=== PATIENT | female | born 1985 | race Caucasian/White ===

== ENCOUNTER 2017-11-07 06:12 | Day surgery (SDC) | payer BC ==
[2017-11-07 07:00] LABS: Specific Gravity >= 1.030 (1.005-1.030)
[2017-11-07] MEDS ORDERED: Ringers Lactate 1,000 ML IV ONE (07:02)
[2017-11-07] MEDS ORDERED: MIDAZOLAM HCL 2 MG/2 ML INJ ONE (07:18)
[2017-11-07] MEDS ORDERED: PROPOFOL 200 MG/20 ML VIAL IV ONE (07:18)
[2017-11-07] MEDS ORDERED: FENTANYL CITR 100 MCG/2 ML ONE (07:19)
[2017-11-07] MEDS ORDERED: BSS OPTHALMIC SOL 15 ML BOT OPTH ONE (07:34)
[2017-11-07] MEDS ORDERED: POVIDONE-IODINE 5% EYE DROPS ONE (07:34)
[2017-11-07] MEDS ORDERED: TOBRADEX 0.3-0.1% OPTH OINTMENT ONE (07:34)
[2017-11-07] MEDS ORDERED: CYCLOPENTOLATE 2% OPTH 2 ML ONE (07:44)
[2017-11-07] MEDS ORDERED: TROPICAMIDE 1% OPTH 3 ML BOT ONE (07:44)
[2017-11-07] MEDS ORDERED: PHENYLEPHRINE 2.5% OPTH 2 ML ONE (07:44)
[2017-11-07] MEDS ORDERED: MOXIFLOXACIN HCL 0.5% 3ML OPTH OPTH ONE ×2 (07:45→07:55)
[2017-11-07] MEDS ORDERED: CYCLOPENTOLATE 2% OPTH 2 ML OPTH ONE (07:55)
[2017-11-07] MEDS ORDERED: PHENYLEPHRINE 2.5% OPTH 2 ML OPTH ONE (07:55)
[2017-11-07] MEDS ORDERED: TROPICAMIDE 1% OPTH 3 ML BOT OPTH ONE (07:55)
[2017-11-07] MEDS ORDERED: LIDOCAINE 1% MPF 5 ML VIAL ONE (08:08)
[2017-11-07] MEDS ORDERED: GLYCOPYRROLATE 0.2 MG/ML SYR ONE (09:14)
[2017-11-07 09:29] VITALS: O2SAT 100
[2017-11-07] MEDS ORDERED: MORPHINE 4 MG/ML SYR ONE (09:32)
[2017-11-07] MEDS: MEPERIDINE HCL 50 MG/ML AMP ONE ×2 (09:44→09:52)
[2017-11-07] MEDS ORDERED: ACETAMINOPHEN 325 MG TABLET ONE (10:26)
[2017-11-07 10:38] VITALS: TEMP 98.2
[2017-11-07 12:00] VITALS: BP 110/65
--- NOTE | 2017-11-07 20:46 | OP ---
Date of Procedure: 11/07/2017 Surgeon: Solis Palacios MD Workforce Manager: Dr. Migel Palacios. Preoperative Diagnoses: Alternating esotropia, mild amblyopia. Procedures Performed: Recession, right medial rectus, 5.5 mm. Resection right lateral rectus 5.5 mm . Description Of Procedure: After being properly identified in preoperative holding area, the patient was taken back to the operating room where a time-out was performed. The patient was then prepped an d draped in normal sterile fashion. Using a pair of 0.3 forceps, both the right globe and left globe were tested in order to ensure no restriction and good motility. As this was present on both, the p reoperative plan of operating on the right eye was carried out, grasping the conjunctiva with a pair of forceps and Brianne scissors was made to incise the conjunctiva over the medial rectus, and the c onjunctiva was dissected until the medial rectus could be identified and hooked and then cross-hooked . The muscle was thereafter cleaned and then using a 6-0 Vicryl on S14 speculated needle, cut in chuck f. First the superior portion of the medial rectus, then the inferior portion of the medial rectus w as sutured and tied into place using a serrefine. Serrefine was then drawn taut and the Brianne sci ssors used to disinsert the medial rectus. A caliper was used to measure 5.5 mm back from the residu al muscle stump and holding the caliper with a perpendicular orientation, so that the final muscle re section would be parallel to the initial muscle insertion, the sclera was marked, and then the suture placed into the sclera, first on the inferior and then on the superior portion, then tied into posit ion. Visualization confirmed a parallel placement as well as measurement of the desired amount. Our attention was then turned to the lateral rectus, and again the conjunctiva was incised with the West efra scissors and the lateral rectus dissected free. The muscle was hooked and then cross-hooked in order to release any possible entrapment of the inferior oblique muscle, and once this was performed, the lateral rectus fully isolated and dissected. Once this had been performed to our satisfaction, a Emerald clamp was placed over the lateral rectus and tightened into position and then the muscle dis inserted from its original insertion. A pair of double-armed 6-0 Vicryl again on S14 needle were naheed anupam through the original muscle insertion, the muscle stump backed to forward manner and then using t he same caliper set to 5.5 mm confirmed with a ruler, each of the suture arms was placed through the through the muscle belly, 5.5 mm back from the clamp. This was then tied down into position and once tied down with the knots cut, the excess muscle stump was removed. The conjunctiva was then draped closed, and the globe tested in order to make sure no significant restriction existed, and once this was confirmed, the procedure concluded. TobraDex ointment was placed over the eye, and the drapes re moved with the patient pressure patched. She is to follow up with myself, Dr. Solis Palacios, at the [facility] tomorrow morning. She was taken to the postop holding area in stable condi tion having tolerated procedure well. There were no complications. Estimated Blood Loss: Less than 1 mL. Specimen: No specimen sent. Drains: No drains placed. As discussed with both the patient and her preoperatively, that this procedure would not full y correct the patient's turn as a full correction would result in diplopia and even a more partial co rrection would end in diplopia. The goal of this operation is to make the patient more straight with a better cosmetic appearance as well as being able to tolerate her glasses, but that the eyes will n ot be perfectly straight. KOBE/JULIO CESAR Voice ID: [id number] Report ID: [id number]
== END 2017-11-07 11:53 | disposition home or self-care (01) ==
LOC: OR 06:12
PROVIDERS: ATTEND Ophthalmology
PROC: 08SL0ZZ Reposition Right Extraocular Muscle, Open Approach (ICD-10-PCS; principal; 2017-11-07 07:30)
DX: H50.05 Alternating esotropia (principal); Z88.6 Allergy status to analgesic agent; Z88.0 Allergy status to penicillin; H53.001 Unspecified amblyopia, right eye
CPT/HCPCS: 81025; J2175; J2250; J3010

== ENCOUNTER 2018-03-10 11:10 | Emergency (ER) | payer BC ==
--- OUTSIDE RECORDS SUMMARY | 2018-03-10 11:12 | XMS REPORT ---
:1985 [facility] Address [address] [place] [address] Dr. Bates[address] [place] [id number] Care Team Providers Name Role Phone Unavailable Unavailable Unavailable Problems This patient has no known problems. Allergies, Adverse Reactions, Alerts This patient has no known allergies or adverse reactions. Medications This patient has no known medications.
[2018-03-10] MEDS ORDERED: HYDROCODONE/APAP 7.5/325 MG TAB ONE (12:50)
[2018-03-10 13:10] LABS: Absolute Lymphocytes (CBC) 0.6 K/uL (0.7-4.9); Absolute Monocytes 0.2 K/uL (0.1-1.3); Absolute Neutrophil 2.5 K/uL (1.8-8.0); Basophils % 0.3 % (0-1.3); Eosinophils % 2.9 % (0-4.4); Hematocrit 36.4 % (36.0-45.0); Lymphocytes % 17.5 % (15.3-44.8); MPV 9.1 fL (7.6-11.3); Monocytes % 6.8 % (3.3-12.3); RBC Red Blood Cell Count 3.97 M/uL (3.86-4.86)
[2018-03-10 13:25] LABS: ALT/SGPT 14 U/L (12-78); AST/SGOT 5 U/L (15-37); Albumin 3.6 g/dL (3.4-5.0); Alkaline Phosphatase 64 U/L (45-117); BUN Blood Urea Nitrogen 8 mg/dL (7-18); Bicarbonate 28 mmol/L (21-32); Bilirubin Direct 0.2 mg/dL (0-0.2); Bilirubin Total 0.5 mg/dL (0.2-1.0); Glucose Level 100 mg/dL (74-106); Lipase 78 U/L (73-393); Potassium 3.8 mmol/L (3.5-5.1); Protein, Total 6.8 g/dL (6.4-8.2); Sodium Level 139 mmol/L (136-145)
--- NOTE | 2018-03-10 13:57 | RAD REPORT ---
EXAM DESCRIPTION: US - Pelvis Complete - 03/10/2018 1:46 pm CLINICAL HISTORY: Pelvic pain, history of IUD placement Preliminary findings provided at the time of the study. COMPARISON: Ultrasound January 2015 TECHNIQUE: Transabdominal pelvic sonography was performed. FINDINGS: IUD is identified and appears properly positioned within the fundus portion of the endomet rial cavity. No discrete endometrial or myometrial mass. No blood or fluid in the cul de sac. Both ovaries are identifiable. Doppler evaluation shows normal o varian blood flow pattern. No dominant solid or cystic ovarian or adnexal finding. IMPRESSION: Unremarkable transabdominal pelvic ultrasound. IUD is well positioned.
--- NOTE | 2018-03-10 14:12 | EDPHYS ---
Physician Documentation [facility] Name: Norma Cantu Age: 33 yrs Sex: Female : 1985 Arrival Date: 03/10/2018 Time: 11:14 Bed 24 Private MD: Arie Maravilla ED Physician Harvey Crook HPI: 03/10 12:32 This 33 yrs old Female presents to ER via Ambulatory with complaints of ma2 Vaginal Pain. 12:32 The patient presents with suprapubic cramping and vaginal discharge . Onset: The ma2 symptoms/episode began/occurred gradually, 2 day(s) ago. Associated signs and symptoms: Pertinent positives: vaginal discharge, Pertinent negatives: dysuria, fever, urinary frequency, vaginal bleeding. Severity of symptoms: At their worst the symptoms were moderate, in the emergency department the symptoms are unchanged. The patient has not experienced similar symptoms in the past. Historical: - Allergies: 11:37 Aspirin; sv 11:37 NSAIDS; sv 11:37 PENICILLINS; sv - PSHx: 11:37 tubal reversal; sv - Immunization history:: Flu vaccine is up to date. - Social history:: Smoking status: Patient/guardian denies using tobacco, Patient/guardian denies using alcohol, street drugs, The patient lives. - Ebola Screening: : No symptoms or risks identified at this time. - Family history:: not pertinent. - Hospitalizations: : No recent hospitalization is reported. ROS: 12:32 Positive for pelvic pain, Negative for urinary symptoms, difficulty urinating, ma2 bladder incontinence, vaginal itching, menstrual abnormality. 12:32 Constitutional: Negative for fever, chills, and weight loss, Neck: Negative for injury, pain, and swelling, Cardiovascular: Negative for chest pain, palpitations, and edema, Respiratory: Negative for shortness of breath, cough, wheezing, and pleuritic chest pain, Abdomen/GI: Negative for abdominal pain, nausea, diarrhea, and constipation. 12:32 All other systems are negative. Exam: 12:32 Constitutional: This is a well developed, well nourished patient who is awake, alert, ma2 and in no acute distress. Chest/axilla: Normal chest wall appearance and motion. Nontender with no deformity. No lesions are appreciated. Cardiovascular: Regular rate and rhythm with a normal S1 and S2. No gallops, murmurs, or rubs. Normal PMI, no JVD. No pulse deficits. Respiratory: Lungs have equal breath sounds bilaterally, clear to auscultation and percussion. No rales, rhonchi or wheezes noted. No increased work of breathing, no retractions or nasal flaring. Abdomen/GI: Soft, non-tender, with normal bowel sounds. No distension or tympany. No guarding or rebound. No evidence of tenderness throughout. MS/ Extremity: Pulses equal, no cyanosis. Neurovascular intact. Full, normal range of motion. Neuro: Awake and alert, GCS 15, oriented to person, place, time, and situation. Cranial nerves II-XII grossly intact. Motor strength 5/5 in all extremities. Sensory grossly intact. Cerebellar exam normal. Normal gait. Vital Signs: 11:37 BP 102 / 77; Pulse 83; Resp 16; Temp 97.7; Pulse Ox 98% ; Weight 66.22 kg; Height 5 ft. sv 4 in. (162.56 cm); Pain 7/10; 14:00 BP 110 / 80; Pulse 80; Resp 17; Pulse Ox 99% on R/A; kr2 11:37 Body Mass Index 25.06 (66.22 kg, 162.56 cm) sv MDM: 11:59 Patient medically screened. ma2 12:32 Differential diagnosis: ectopic , menometrorrhagia, nonspecific abdominal ma2 pain, urinary tract infection. 14:09 Data reviewed: vital signs, nurses notes. Counseling: I had a detailed discussion with ma2 the patient and/or guardian regarding: the historical points, exam findings, and any diagnostic results supporting the discharge/admit diagnosis, the presence of at least one elevated blood pressure reading (>120/80) during this emergency department visit, the need for outpatient follow up. ED course: she will f/u with soft boarder for IUD removal . 03/10 13:01 Order name: Basic Metabolic Panel; Complete Time: 14:00 EDMS 03/10 13:01 Order name: Liver (Hepatic) Function; Complete Time: 14:00 EDMS 03/10 13:01 Order name: Lipase; Complete Time: 14:00 EDMS 03/10 13:02 Order name: Creatinine (Radiology Only); Complete Time: 14:00 EDMS 03/10 13:02 Order name: Test Serum, Qual[place]; Complete Time: 14:00 EDUT 03/10 13:02 Order name: CBC with Automated Diff; Complete Time: 14:00 EDUT 03/10 12:25 Order name: IV Saline Lock; Complete Time: 13:03 [facility] 03/10 12:25 Order name: Labs collected and sent; Complete Time: 13:03 [facility] 03/10 12:25 Order name: Urine Dipstick-Ancillary (obtain specimen) [facility] 03/10 12:39 Order name: Pelvis Complete; Complete Time: 14:00 EDMS 03/10 15:02 Order name: Urinalysis EDMS Administered Medications: 12:40 Drug: [place] (7.5 mg-325 mg) 1 tabs Route: PO; dm5 13:35 Follow up: Response: No adverse reaction; Pain is decreased dm5 14:24 Not Given (order change): Rocephin (cefTRIAXone) 125 mg IM once kr2 14:30 Drug: AZITHromycin 1 grams Route: PO; kr2 15:01 Follow up: Response: No adverse reaction kr2 14:44 Drug: Rocephin (cefTRIAXone) 250 mg Route: IM; Site: right gluteus; kr2 15:02 Follow up: Response: No adverse reaction kr2 Disposition: 03/10/18 14:12 Discharged to Home. Impression: Abdominal and pelvic pain. - Condition is Stable. - Discharge Instructions: Pelvic Pain, Female, Intrauterine Device Insertion, Care After. - Prescriptions for Tylenol- Codeine #3 300-30 mg Oral Tablet - take 2 tablet by ORAL route every 6 hours As needed; 30 tablet. - Medication Reconciliation Form, Thank You Letter, Antibiotic Education, Prescription Opioid Use form. - Follow up: Private Physician; When: Tomorrow; Reason: Continuance of care. Signatures: [facility] Oneida Serrato RN RN dm5 Zoe Dumont RN RN sv Reaves, Karey, RN RN kr2 Harvey Crook MD MD ma2 Corrections: (The following items were deleted from the chart) 15:06 14:12 03/10/2018 14:12 Discharged to Home. Impression: Abdominal and pelvic pain. kr2 Condition is Stable. Forms are Medication Reconciliation Form, Thank You Letter, Antibiotic Education, Prescription Opioid Use. Follow up: Private Physician; When: Tomorrow; Reason: Continuance of care. ma2
--- NOTE | 2018-03-10 14:12 | ER ---
Nurse's Notes [facility] Name: Norma Cantu Age: 33 yrs Sex: Female : 1985 Arrival Date: 03/10/2018 Time: 11:14 Bed 24 Private MD: Arie Maravilla Diagnosis: Abdominal and pelvic pain Presentation: 03/10 11:35 Presenting complaint: Patient states: suprapubic pain, vaginal "bridget" pain, nausea x 2 sv days. Reports unable to find the string to her IUD as well. Transition of care: patient was not received from another setting of care. Onset of symptoms was March 08, 2018. Care prior to arrival: None. 11:35 Method Of Arrival: Ambulatory sv 11:35 Acuity: ARISTIDES 3 sv 13:00 Risk Assessment: Do you want to hurt yourself or someone else? Patient reports no kr2 desire to harm self or others. 13:00 Initial Sepsis Screen: Does the patient meet any 2 criteria? No. Patient's initial kr2 sepsis screen is negative. Does the patient have a suspected source of infection? No. Patient's initial sepsis screen is negative. Triage Assessment: 11:38 General: Appears in no apparent distress. uncomfortable, Behavior is calm, cooperative, sv appropriate for age. Pain: Complains of pain in suprapubic area Pain currently is 7 out of 10 on a pain scale. Neuro: Level of Consciousness is awake, alert, obeys commands, Oriented to person, place, time, situation. Respiratory: Respiratory effort is even, unlabored, Respiratory pattern is regular, symmetrical. : Reports discharge, from vagina that is "bridget". Historical: - Allergies: 11:37 Aspirin; sv 11:37 NSAIDS; sv 11:37 PENICILLINS; sv - PSHx: 11:37 tubal reversal; sv - Immunization history:: Flu vaccine is up to date. - Social history:: Smoking status: Patient/guardian denies using tobacco, Patient/guardian denies using alcohol, street drugs, The patient lives. - Ebola Screening: : No symptoms or risks identified at this time. - Family history:: not pertinent. - Hospitalizations: : No recent hospitalization is reported. Screenin:04 Abuse screen: Denies threats or abuse. Denies injuries from another. Nutritional dm5 screening: No deficits noted. Tuberculosis screening: No symptoms or risk factors identified. Fall Risk None identified. Assessment: 12:04 General: Appears in no apparent distress. uncomfortable, Behavior is calm, cooperative. dm5 Pain: Complains of pain in suprapubic area, vaginal. Neuro: Level of Consciousness is awake, alert, obeys commands, Oriented to person, place, time. Respiratory: No deficits noted. GI: No deficits noted. : Reports vaginal pain and discharge. Derm: Skin is pink, warm \\T\\ dry. Vital Signs: 11:37 BP 102 / 77; Pulse 83; Resp 16; Temp 97.7; Pulse Ox 98% ; Weight 66.22 kg; Height 5 ft. sv 4 in. (162.56 cm); Pain 7/10; 14:00 BP 110 / 80; Pulse 80; Resp 17; Pulse Ox 99% on R/A; kr2 11:37 Body Mass Index 25.06 (66.22 kg, 162.56 cm) sv ED Course: 11:14 Patient arrived in ED. mr 11:14 Arie Maravilla MD is Private Physician. mr 11:36 Triage completed. sv 11:37 Arm band placed on Patient placed in waiting room, Patient notified of wait time. sv 11:59 Harvey Crook MD is Attending Physician. ma2 12:04 Oneida Serrato, RN is Primary Nurse. dm5 12:04 Patient has correct armband on for positive identification. dm5 13:00 Inserted saline lock: 20 gauge in right antecubital area, using aseptic technique. kr2 ,using aseptic technique. Placed by Charles Serrato RN Blood collected. 13:12 Ultrasound completed. Patient tolerated well. sg3 13:47 Pelvis Complete In Process Unspecified. EDMS 14:45 IV discontinued, intact, bleeding controlled, No redness/swelling at site. Pressure kr2 dressing applied. 15:02 No provider procedures requiring assistance completed. kr2 Administered Medications: 12:40 Drug: [place] (7.5 mg-325 mg) 1 tabs Route: PO; dm5 13:35 Follow up: Response: No adverse reaction; Pain is decreased dm5 14:24 Not Given (order change): Rocephin (cefTRIAXone) 125 mg IM once kr2 14:30 Drug: AZITHromycin 1 grams Route: PO; kr2 15:01 Follow up: Response: No adverse reaction kr2 14:44 Drug: Rocephin (cefTRIAXone) 250 mg Route: IM; Site: right gluteus; kr2 15:02 Follow up: Response: No adverse reaction kr2 Outcome: 14:12 Discharge ordered by . chan2 15:03 Discharged to home ambulatory, with family. kr2 15:03 Condition: good 15:03 Discharge instructions given to patient, Instructed on discharge instructions, follow up and referral plans. medication usage, Demonstrated understanding of instructions, follow-up care, medications, Prescriptions given X 1. 15:06 Patient left the ED. kr2 Signatures: Dispatcher [employer] EDMS Oneida Serrato RN RN Zoe Catry RN Beatrice Sandy Karey RN RN bon2 Carol Barker3 Harvey Crook MD MD ma2 Corrections: (The following items were deleted from the chart) 11:39 11:35 Presenting complaint: Patient states: suprapubic pain, vaginal "bridget" pain, sv nausea x 2 days. sv
[2018-03-10] MEDS ORDERED: AZITHROMYCIN 250 MG TAB ONE (14:36)
[2018-03-10] MEDS ORDERED: CEFTRIAXONE 250 MG/VIAL ONE ×2 (14:37→14:42)
[2018-03-10] MEDS ORDERED: WATER FOR INJ,STERILE 10 ML ONE (14:37)
[2018-03-10 15:07] LABS: Urine Appearance CLEAR; Urine Bilirubin NEGATIVE (NEG); Urine Blood 2+ (NEG); Urine Color YELLOW; Urine Glucose NEGATIVE (NEG); Urine Protein NEGATIVE (NEG); Urine Specific Gravity <=1.005 (1.005-1.030); Urine Urobilinogen 0.2 mg/dL (0.2-1.0)
[2018-03-10 15:10] LABS: Urine Microscopic Reflex ORDER UMIC
[2018-03-10 15:24] LABS: Urine Bacteria <20 /HPF (<20); Urine Culture Reflex Order NOT NEEDED; Urine RBC NONE SEEN /HPF (NONE SEEN)
[2018-03-10 15:36] VITALS: TEMP 97.7
[2018-03-10 15:37] VITALS: BP 110/80; O2SAT 99
== END 2018-03-10 15:06 | disposition home or self-care (01) ==
LOC: ER 11:10
DX: R10.2 Pelvic and perineal pain (principal); R10.9 Unspecified abdominal pain
CPT/HCPCS: 36415; 76856; 80048; 80076; 81003; 81015; 83690; 84703; 85025; 96372; 99284; J0696

== ENCOUNTER 2019-03-15 13:26 | Emergency (ER) | payer BC, OTHER ==
--- OUTSIDE RECORDS SUMMARY | 2019-03-15 13:28 | XMS REPORT ---
:1985 [facility] Address [address] [place] [address] Dr. Bates. [address] [place] [address] Care Team Providers Name Role Phone Unavailable Unavailable Unavailable Problems This patient has no known problems. Allergies, Adverse Reactions, Alerts This patient has no known allergies or adverse reactions. Medications This patient has no known medications.
--- OUTSIDE RECORDS SUMMARY | 2019-03-15 13:29 | XMS REPORT | Summary of Care ---
:1985 Author Organization [facility] Address [address] [place] [address] Care Team Providers Name Role Phone Unavailable Primary Care Provider Unavailable Reason for Visit Reason Comments ULTRASOUND (Routine) Status Reason Specialty Diagnoses / Referred By Referred To Procedures Contact Contact Authorized Maternal Diagnoses Supervision of high risk in second trimester 16 weeks gestation of Liz Xavier, Medicine Procedures CONSULT MATERNAL MEDICINE ULTRASOUND Preferred Location: [address] [phone] Encounter Details Date Type Department Care Team Description 10/26/2018 Radiologic Technologist Mammogram Visit [facility], Beatrice Palacio MD [address] [place] [address] [id number] [place] [address] AMA (advanced maternal age) multigravida 35+, second trimester; [address] Usg Room Personal history of pre-term labor [facility] [address] [place] [address], [address] [place] [address] Allergies Active Allergy Reactions Severity Noted Date Comments Aspirin Shortness of Breath 03/09/2018 Nsaids (Non-Steroidal Shortness of Breath 03/09/2018 Anti-Inflammatory Drug) Penicillin Hives 03/09/2018 documented as of this encounter (statuses as of 10/26/2018) Medications Medication Sig Dispensed Refills Start Date End Date Status fexofenadine HCl Take by mouth. 0 Active (MALIKA ORAL) ACYCLOVIR ORAL Take by mouth. 0 Active fluticasone propionate Use in each 0 Active (FLONASE NASAL) nostril. vit Take by mouth. 0 Active calc,iron,folic ( VITAMIN ORAL) acyclovir 400 mg tablet 0 05/25/2018 Active montelukast 10 mg 0 05/25/2018 Active tablet doxylamine (UNISOM, Take by mouth. 0 Active DOXYLAMINE,) 25 mg tablet metroNIDAZOLE (FLAGYL) Take 1 tablet by 14 tablet 0 07/17/2018 Active 500 mg mouth every 12 tabletIndications: BV (twelve) hours. (bacterial vaginosis) cephALEXin (KEFLEX) 500 Take 1 capsule 30 capsule 0 08/08/2018 Active mg capsuleIndications: by mouth 4 Urinary tract infection (four) times without hematuria, site daily. unspecified montelukast 10 mg Take 1 tablet by 30 tablet 3 10/01/2018 Active tabletIndications: mouth daily. Seasonal allergic rhinitis, unspecified trigger hydroxyprogesterone,PF, inject 1.1 mL 4.4 mL 4 10/02/2018 Active 275 mg/1.1 mL injection under the skin weekly. documented as of this encounter (statuses as of 10/26/2018) Active Problems Problem Noted Date History of depression 07/18/2018 History of anxiety 07/18/2018 History of bipolar disorder 07/18/2018 History of herpes genitalis 07/18/2018 Mild intermittent asthma without complication 07/18/2018 Previous section 07/18/2018 Family history of congenital heart defect 07/18/2018 History of reversal of tubal ligation 07/18/2018 History of delivery, currently 07/18/2018 Presence of intrauterine contraceptive device 03/30/2018 Encounter for removal of intrauterine contraceptive device (IUD) 03/30/2018 Estimated Date of Delivery Comments Yes 03/14/2019 Based on last menstrual period of 06/07/2018 (Exact Date) documented as of this encounter (statuses as of 10/26/2018) Immunizations Name Administration Dates Next Due Influenza Virus Vaccine Quad .5 mL IM 6+ MO 05/28/2018 documented as of this encounter Social History Tobacco Use Types Packs/Day Years Used Date Never Smoker Smokeless Tobacco: Never Used Alcohol Use Drinks/Week oz/Week Comments Yes rare Estimated Date of Delivery Comments Yes 03/14/2019 Based on last menstrual period of 06/07/2018 (Exact Date) Sex Assigned at Date Recorded Not on file Job Start Date Occupation Industry Not on file Not on file Not on file Travel History Travel Start Travel End No recent travel history available. documented as of this encounter Last Filed Vital Signs Not on filedocumented in this encounter Plan of Treatment Date Type Specialty Care Team Description 10/31/2018 Routine Obstetrics & Pulido, Gabriella Llamas MD Visit Gynecology [address] [place] [address] [place] [address] [phone] Health Maintenance Due Date Last Done Comments DTaP,Tdap,and Td Vaccines (1 - 2002 Tdap) INFLUENZA VACCINE (#1) 2018 05/28/2018 PAP SMEAR 05/28/2021 05/28/2018 PNEUMOCOCCAL 0-64 YEARS COMBINED Aged Out No longer eligible based on SERIES patient's age to complete this topic documented as of this encounter Procedures Procedure Name Priority Date/Time Associated Comments Diagnosis SECOND AND THIRD Routine 10/26/2018 10:34 AM Results for this TRIMESTER ULTRASOUND CDT procedure are in the results section. SECOND AND THIRD Routine 10/26/2018 10:29 AM Results for this TRIMESTER ULTRASOUND CDT procedure are in the results section. documented in this encounter Results SECOND AND THIRD TRIMESTER ULTRASOUND (10/26/2018 10:34 AM CDT) Specimen SECOND AND THIRD TRIMESTER ULTRASOUND (10/26/2018 10:29 AM CDT) Specimen documented in this encounter Visit Diagnoses Diagnosis AMA (advanced maternal age) multigravida 35+, second trimester Personal history of pre-term labor documented in this encounter Insurance Payer Benefit Plan / Subscriber ID Effective Phone Address Type Group Dates [facility] [id number] 2014-Pre [phone] PPO/POS - OUT OF STATE sent [id number] [place] [address] [facility] CHILDRENS xxxxxxxxx 2018-Prese Medicaid CHILDRENS HEALTH nt HEALTH PLAN - MANAGED MEDICAID documented as of this encounter
--- OUTSIDE RECORDS SUMMARY | 2019-03-15 13:29 | XMS REPORT | Summary of Care ---
:1985 Author Organization [facility] Address [address] [place] [address] Care Team Providers Name Role Phone Arie Maravilla Hemant Primary Care Provider Reason for Visit Reason Comments Rx Concern/Question Encounter Details Date Type Department Care Team Description 10/09/[address] [facility] Women's Gabriella Pulido MD Rx Concern/Question Healthcare- [address] [place] [address] [address] [phone] Allergies Active Allergy Reactions Severity Noted Date Comments Aspirin Shortness of Breath 03/09/2018 Nsaids (Non-Steroidal Shortness of Breath 03/09/2018 Anti-Inflammatory Drug) Penicillin Hives 03/09/2018 documented as of this encounter (statuses as of 10/09/2018) Medications Medication Sig Dispensed Refills Start Date [...] as of this encounter (statuses as of 10/09/2018) Active Problems Problem Noted Date History of [...] as of this encounter (statuses as of 10/09/2018) Immunizations Name Administration Dates Next Due Influenza [...] Treatment Date Type Specialty Care Team Description 10/26/2018 Marksmanship Instructor Visit Maternal Lee, Beatrice Palacio MD [id number] [place] [address] [phone] Medicine 1, [facility] Mf Usg Room 10/31/2018 Routine Visit Obstetrics & Pulido, Gabriella Llamas MD Gynecology [address] [place] [address] [place] [address] [phone] Health Maintenance Due Date Last Done Comments DTaP,Tdap,and Td Vaccines (1 - 2002 Tdap) INFLUENZA VACCINE 11/11/2018 05/28/2018 PAP SMEAR 05/28/2021 05/28/2018 PNEUMOCOCCAL 0-64 YEARS COMBINED Aged Out No longer eligible based on SERIES patient's age to complete this topic documented as of this encounter Results Not on filedocumented in this encounter Insurance Payer Benefit Plan / Subscriber ID Effective Phone Address Type Group Dates [facility] [id number] 2014-Pre [phone] PPO/POS - OUT OF STATE sent [id number] [place] [address] [facility] xxxxxxxxx 2018-Prese Medicaid [facility] HE[employer] nt HEALTH PLAN - MANAGED MEDICAID documented as of this encounter
--- OUTSIDE RECORDS SUMMARY | 2019-03-15 13:29 | XMS REPORT | Summary of Care ---
:1985 Author Organization [facility] Address [address] [place] [address] Care Team Providers Name Role Phone Arie Maravilla Hemant Primary Care Provider Reason for Visit Reason Comments Rx Concern/Question Encounter Details Date Type Department Care Team Description 10/09/2018 Telephone [facility] Women's Gabriella Pulido MD Rx Concern/Question Healthcare- [address] [place] [address] [address] [phone] Allergies Active Allergy Reactions Severity Noted Date Comments Aspirin Shortness of Breath 03/09/2018 Nsaids (Non-Steroidal Shortness of Breath 03/09/2018 Anti-Inflammatory Drug) Penicillin Hives 03/09/2018 documented as of this encounter (statuses as of 10/12/2018) Medications Medication Sig Dispensed Refills Start Date [...] as of this encounter (statuses as of 10/12/2018) Active Problems Problem Noted Date History of [...] as of this encounter (statuses as of 10/12/2018) Immunizations Name Administration Dates Next Due Influenza [...] Date Type Specialty Care Team Description 10/26/2018 Livestock Exhibitor Visit Maternal [place], Beatrice Palacio MD [id number] [place] [address] [phone] Medicine 1, [facility] Mf Usg Room 10/31/2018 Routine Visit Obstetrics & Pulido, Gabriella Llamas MD Gynecology [address] [place] [address] [place] [address] [phone] Health Maintenance Due Date Last Done Comments [...] ID Effective Phone Address Type Group Dates [facility] [id number] 2014-Pre [phone] [address] B[address] PPO/POS - OUT OF STATE sent [id number] [place] [address] [facility] xxxxxxxxx 2018-Prese Medicaid [facility]ILDR[employer] HE[facility] nt HEALTH PLAN - MANAGED MEDICAID documented as of this encounter
--- OUTSIDE RECORDS SUMMARY | 2019-03-15 13:29 | XMS REPORT | Summary of Care ---
:1985 Author Organization [facility] Address [address] [place] [address] Care Team Providers Name Role Phone Arie Maravilla Hemant Primary Care Provider Reason for Visit Reason Comments Talk To Nurse Encounter Details Date Type Department Care Team Description 10/08/2018 Telephone [facility] Women's Gabriella Pulido MD Talk To Nurse Healthcare- [address] [facility], Suite [facility] 208 208 [place] [address] [place] [phone] Allergies Active Allergy Reactions Severity Noted Date Comments Aspirin Shortness of Breath 03/09/2018 Nsaids (Non-Steroidal Shortness of Breath 03/09/2018 Anti-Inflammatory Drug) Penicillin Hives 03/09/2018 documented as of this encounter (statuses as of 10/08/2018) Medications Medication Sig Dispensed Refills Start Date [...] as of this encounter (statuses as of 10/08/2018) Active Problems Problem Noted Date History of [...] as of this encounter (statuses as of 10/08/2018) Immunizations Name Administration Dates Next Due Influenza [...] Date Type Specialty Care Team Description 10/26/2018 Buckle Stapler Visit Maternal [place], Beatrice Palacio MD [id number] [place], [place] [address] Medicine 1, [facility] 10/31/2018 Routine Visit Obstetrics & Pulido, Gabriella Llamas MD Gynecology [address] [place] [address] [place] [address] [phone] Health Maintenance Due Date Last Done Comments [...] ID Effective Phone Address Type Group Dates [facility] [id number] 2014-Pre [phone] O BOX PPO/POS - OUT OF STATE sent [id number] [place] [address] [facility] xxxxxxxxx 2018-Prese Medicaid CHILDRENS HE[facility] nt HEALTH PLAN - MANAGED MEDICAID documented as of this encounter
--- OUTSIDE RECORDS SUMMARY | 2019-03-15 13:29 | XMS REPORT | Summary of Care ---
:1985 Author Organization [facility] Address [address] [place] [address] Care Team Providers Name Role Phone Arie Maravilla Hemant Primary Care Provider Reason for Visit Reason Comments Notification Encounter Details Date Type Department Care Team Description 10/15/2018 Telephone [facility] Women's Gabriella Pulido MD Notification Healthcare- [address] [facility], Suite [facility] 208 208 [place] [address] [place] [phone] Allergies Active Allergy Reactions Severity Noted Date Comments Aspirin Shortness of Breath 03/09/2018 Nsaids (Non-Steroidal Shortness of Breath 03/09/2018 Anti-Inflammatory Drug) Penicillin Hives 03/09/2018 documented as of this encounter (statuses as of 10/17/2018) Medications Medication Sig Dispensed Refills Start Date [...] as of this encounter (statuses as of 10/17/2018) Active Problems Problem Noted Date History of [...] as of this encounter (statuses as of 10/17/2018) Immunizations Name Administration Dates Next Due Influenza [...] Date Type Specialty Care Team Description 10/26/2018 Transition Assistant Visit Maternal LeeBeatrice MD [id number] [place], [place] [address] Medicine 1, [facility] Usg Room 10/31/2018 Routine Visit Obstetrics & Pulido, Gabriella Llamas MD Gynecology [address] [place] [address] [place] [address] [phone] Health Maintenance Due Date Last Done Comments [...] ID Effective Phone Address Type Group Dates [facility] [id number] 2014-Pre [phone] [address] BOX PPO/POS - OUT OF STATE sent [id number] [place] [address] [facility] xxxxxxxxx 2018-Prese Medicaid [facility]IL[facility] HE[employer] nt HEALTH PLAN - MANAGED MEDICAID documented as of this encounter
--- OUTSIDE RECORDS SUMMARY | 2019-03-15 13:29 | XMS REPORT | Summary of Care ---
:1985 Author Organization [facility] Address [address] [place] [address] Care Team Providers Name Role Phone Unavailable Primary Care Provider Unavailable Reason for Visit Reason Comments Other Encounter Details Date Type Department Care Team Description 10/29/2018 Telephone [facility] Women's PulidoGabriella MD Other Healthcare- [address], Suite [facility] 208 208 [place] [address] [place] [phone] Allergies Active Allergy Reactions Severity Noted Date Comments Aspirin Shortness of Breath 03/09/2018 Nsaids (Non-Steroidal Shortness of Breath 03/09/2018 Anti-Inflammatory Drug) Penicillin Hives 03/09/2018 documented as of this encounter (statuses as of 10/30/2018) Medications Medication Sig Dispensed Refills Start Date [...] as of this encounter (statuses as of 10/30/2018) Active Problems Problem Noted Date History of [...] as of this encounter (statuses as of 10/30/2018) Immunizations Name Administration Dates Next Due Influenza [...] & Pulido, Gabriella Llamas MD Visit Gynecology [address] [place] [address] [place] [address] [phone] Health Maintenance Due Date Last Done Comments DTaP,Tdap,and Td Vaccines ( - 2002 Tdap) INFLUENZA VACCINE (#1) 2018 05/28/2018 PAP SMEAR 05/28/2021 05/28/2018 PNEUMOCOCCAL 0-64 YEARS COMBINED Aged Out No longer eligible based on SERIES patient's age to complete this topic documented as of this encounter Results Not on filedocumented in this encounter Insurance Payer Benefit Plan / Subscriber ID Effective Phone Address Type Group Dates [facility] [id number] 2014-Pre [phone] O BOX PPO/POS - OUT OF STATE sent [id number] [place] [address] [facility] xxxxxxxxx 2018-Prese Medicaid [facility]ILDR[employer] HE[facility] nt HEALTH PLAN - MANAGED MEDICAID documented as of this encounter
--- OUTSIDE RECORDS SUMMARY | 2019-03-15 13:29 | XMS REPORT | Summary of Care ---
:1985 Author Organization [facility] Address [address] [place] [address] Care Team Providers Name Role Phone Arie Maravilla Hemant Primary Care Provider Reason for Visit Reason Comments Rx Concern/Question Encounter Details Date Type Department Care Team Description 10/09/2018 Telephone [facility] Women's Gabriella Pulido MD Rx Concern/Question Healthcare- [address] [place] [address] [address] [phone] Allergies Active Allergy Reactions Severity Noted Date [...] Date Type Specialty Care Team Description 10/26/2018 Business Systems Administrator Visit Maternal Lee, Beatrice Palacio MD [id number] [place] [address] [phone] Medicine 1, [facility] Mf Usg Room 10/31/2018 Routine Visit Obstetrics & Pulido, Gabriella Llamas MD Gynecology [address] [place] [address] [place] [address] [phone] Health Maintenance Due Date Last Done Comments [...] ID Effective Phone Address Type Group Dates [facility] [id number] 2014-Pre [phone] O BOX PPO/POS - OUT OF STATE sent [id number] [place] [address] [facility] xxxxxxxxx 2018-Prese Medicaid CHILDRENS HE[employer] nt HEALTH PLAN - MANAGED MEDICAID documented as of this encounter
--- OUTSIDE RECORDS SUMMARY | 2019-03-15 13:29 | XMS REPORT | Summary of Care ---
:1985 Author Organization [facility] Address [address] [place] [address] Care Team Providers Name Role Phone Arie Maravilla Hemant Primary Care Provider Reason for Visit Reason Comments Prescription Encounter Details Date Type Department Care Team Description 10/05/2018 Telephone [facility] Women's Gabriella Pulido MD Prescription Healthcare- [address] [facility], Suite [facility] 208 208 [place] [address] [place] [phone] Allergies Active Allergy Reactions Severity Noted Date Comments Aspirin Shortness of Breath 03/09/2018 Nsaids (Non-Steroidal Shortness of Breath 03/09/2018 Anti-Inflammatory Drug) Penicillin Hives 03/09/2018 documented as of this encounter (statuses as of 10/05/2018) Medications Medication Sig Dispensed Refills Start Date [...] as of this encounter (statuses as of 10/05/2018) Active Problems Problem Noted Date History of [...] as of this encounter (statuses as of 10/05/2018) Immunizations Name Administration Dates Next Due Influenza [...] & Pulido, Gabriella Llamas MD Visit Gynecology [address] [place] [address] [address]. Daniel [place], [place] [phone] Health Maintenance Due Date Last Done Comments [...] ID Effective Phone Address Type Group Dates [facility] [id number] 2014-Pre [phone] O BOX PPO/POS - OUT OF STATE sent [id number] [place] [address] [facility] xxxxxxxxx 2018-Prese Medicaid CHILDRENS HE[employer] nt HEALTH PLAN - MANAGED MEDICAID documented as of this encounter
--- OUTSIDE RECORDS SUMMARY | 2019-03-15 13:30 | XMS REPORT | Summary of Care ---
:1985 Author Organization [facility] Address [address] [place] [address] Care Team Providers Name Role Phone Pcp, Patient Does Not Have A Primary Care Provider Reason for Visit Reason Comments SHOTS Cipriano Encounter Details Date Type Department Care Team Description 11/08/2018 Nurse Visit [facility] Women's Pulido, Gabriella Llamas MD [address] [place] [address] [address] [place] [address] History of Healthcare- [place] Nurse, [facility] delivery, currently [address] [place] [address], (Primary Dx) [address] [place] [phone] Allergies Active Allergy Reactions Severity Noted Date Comments Aspirin Shortness of Breath 03/09/2018 Nsaids (Non-Steroidal Shortness of Breath 03/09/2018 Anti-Inflammatory Drug) Penicillin Hives 03/09/2018 documented as of this encounter (statuses as of 11/08/2018) Medications Medication Sig Dispensed Refills Start Date End Date Status fexofenadine HCl Take by 0 Active (MALIKA ORAL) mouth. ACYCLOVIR ORAL Take by 0 Active mouth. fluticasone Use in each 0 Active propionate (FLONASE nostril. NASAL) vit Take by 0 Active calc,iron,folic mouth. ( VITAMIN ORAL) acyclovir 400 mg 0 05/25/2018 Active tablet montelukast 10 mg 0 05/25/2018 Active tablet doxylamine (UNISOM, Take by 0 Active DOXYLAMINE,) 25 mg mouth. tablet metroNIDAZOLE Take 1 tablet 14 tablet 0 07/17/2018 Active (FLAGYL) 500 mg by mouth tabletIndications: every 12 BV (bacterial (twelve) vaginosis) hours. cephALEXin (KEFLEX) Take 1 30 capsule 0 08/08/2018 Active 500 mg capsule by capsuleIndications: mouth 4 Urinary tract (four) times infection without daily. hematuria, site unspecified montelukast 10 mg Take 1 tablet 30 tablet 3 10/01/2018 Active tabletIndications: by mouth Seasonal allergic daily. rhinitis, unspecified trigger hydroxyprogesterone inject 1.1 mL 4.4 mL 4 10/02/2018 11/08/2018 Discontinued ,PF, 275 mg/1.1 mL under the injection skin weekly. Hospital, Clinic, or Other Ordered Dose Route Frequency Start Date End Date Status Facility Administered Medication hydroxyprogesterone(PF) 275 mg SC QWEEKLY 11/09/2018 02/22/2019 Active (CIPRIANO AUTO-INJECTOR) 275 mg/1.1 mL injection 275 mg documented as of this encounter (statuses as of 11/08/2018) Active Problems Problem Noted Date History of [...] as of this encounter (statuses as of 11/08/2018) Immunizations Name Administration Dates Next Due Influenza [...] of this encounter Last Filed Vital Signs Vital Sign Reading Time Taken Comments Blood Pressure 103/61 11/08/2018 4:02 PM CDT Pulse 96 11/08/2018 4:02 PM CDT Temperature 36.7 C (98.1 F) 11/08/2018 4:02 PM CDT Respiratory Rate 18 11/08/2018 4:02 PM CDT Oxygen Saturation - - Inhaled Oxygen Concentration - - Weight 73.8 kg (162 lb 12.8 oz) 11/08/2018 4:02 PM CDT Height - - Body Mass Index 27.94 10/31/2018 3:38 PM CDT documented in this encounter Patient Instructions Patient InstructionsFoZoe chopra RN - 11/08/2018 3:30 PM CDT Hydroxyprogesterone solution for injection Brand Name: Cipriano What is this medicine? HYDROXYPROGESTERONE (margret drox ee proe EDOUARD ter one) is a female hormone. This medicine is used in women who are and who have delivered a baby too early () in the past. It helps lower therisk of having a baby again. This medicine is also used to treat irregular menstrual bleeding or a lack of menstrual bleeding in women. In some cases, it may be used to treat endometrial cancer. How should I use this medicine? This medicine is for injection into a muscle or under the skin. It is given by a health health care marketing specialist in a hospital or clinic setting. Talk to your dye tub operator regarding the use of this medicine in children. Special care may be needed. What side effects may I notice from receiving this medicine? Side effects that you should report to your doctor or health health care marketing specialist as soon as possible: allergic reactions like skin rash, itching or hives, swelling of the face, lips, or tongue breathing problems depressed mood increase in blood pressure increased hunger or thirst increased urination signs and symptoms of a blood clot such as breathing problems; changes in vision; chest pain; severe, sudden headache; pain, swelling, warmth in the leg; trouble speaking; sudden numbness or weakness of the face, arm or leg unusually weak or tired unusual vaginal bleeding yellowing of the eyes or skin Side effects that usually do not require medical attention (report to your doctor or health health care marketing specialist if they continue or are bothersome): diarrhea fluid retention and swelling nausea pain, redness, or irritation at site where injected What may interact with this medicine? Significant interactions are not expected. What if I miss a dose? It is important not to miss your dose. Call your doctor or health health care marketing specialist if you are unable to keep an appointment. Where should I keep my medicine? This drug is given in a hospital or clinic and will not be stored at home. What should I tell my health care provider before I take this medicine? They need to know if you have any of these conditions: breast, cervical, uterine, or vaginal cancer depression diabetes or prediabetes heart disease high blood pressure history of blood clots kidney disease liver disease lung or breathing disease, like asthma migraine headaches seizures vaginal bleeding an unusual or allergic reaction to hydroxyprogesterone, other hormones, castor oil, other medicines, foods, dyes, or preservatives breast-feeding What should I watch for while using this medicine? Your condition will be monitored carefully while you are receiving this medicine. NOTE:This sheet is a summary. It may not cover all possible information. If you have questions aboutthis medicine, talk to your doctor, pharmacist, or health care provider. Copyright 2018 Elsevier documented in this encounter Progress Notes Zoe Franklin RN - 11/08/2018 3:30 PM CDTMakena given per MD order. Pt tolerated well with the exception that shot "burned" with administration. No reaction noted post injection. Observed x 20 min. Pt to RTC in 1 week for next shot. Understanding verbalized. documented in this encounter Plan of Treatment Date Type Specialty Care Team Description 11/15/2018 Nurse Visit Obstetrics & Nurse, [facility] Women's Gynecology Health 11/30/2018 Routine Obstetrics & Liz Xavier, Visit Gynecology JOSE [address] [place] [phone] Health Maintenance Due Date Last Done Comments DTaP,Tdap,and Td Vaccines (1 - 2002 Tdap) INFLUENZA VACCINE (#1) 2018 05/28/2018 PAP SMEAR 05/28/2021 05/28/2018 PNEUMOCOCCAL 0-64 YEARS COMBINED Aged Out No longer eligible based on SERIES patient's age to complete this topic documented as of this encounter Results Not on filedocumented in this encounter Visit Diagnoses Diagnosis History of delivery, currently - Primary with history of pre-term labor documented in this encounter Insurance Payer Benefit Plan / Subscriber ID Effective Phone Address Type Group Dates [facility] [id number] 2014-Pre [phone] P O BOX PPO/POS - OUT OF STATE sent [id number] [place] [address] [facility] xxxxxxxxx 2018-Prese Medicaid CHILDRENS HE[employer] nt HEALTH PLAN - MANAGED MEDICAID documented as of this encounter
--- OUTSIDE RECORDS SUMMARY | 2019-03-15 13:30 | XMS REPORT | Summary of Care ---
:1985 Author Organization [facility] Address [address] [place] [address] Care Team Providers Name Role Phone Pcp, Patient Does Not Have A Primary Care Provider Reason for Visit Reason Comments Notification Encounter Details Date Type Department Care Team Description 11/01/2018 Telephone [facility] Women's Liz Xavier PA-C Notification Healthcare- [address], Suite [facility] 208 208 [place] [address] [place] [phone] Allergies Active Allergy Reactions Severity Noted Date Comments Aspirin Shortness of Breath 03/09/2018 Nsaids (Non-Steroidal Shortness of Breath 03/09/2018 Anti-Inflammatory Drug) Penicillin Hives 03/09/2018 documented as of this encounter (statuses as of 11/01/2018) Medications Medication Sig Dispensed Refills Start Date [...] as of this encounter (statuses as of 11/01/2018) Active Problems Problem Noted Date History of [...] removal of intrauterine contraceptive device (IUD) 03/30/2018 Comments Yes documented as of this encounter (statuses as of 11/01/2018) Immunizations Name Administration Dates Next Due Influenza Virus Vaccine Quad .5 mL IM 6+ MO 05/28/2018 documented as of this encounter Social History Tobacco Use Types Packs/Day Years Used Date Never Smoker Smokeless Tobacco: Never Used Alcohol Use Drinks/Week oz/Week Comments Yes rare Comments Yes Sex Assigned at Date Recorded Not on file Job Start Date Occupation Industry Not on file Not on file Not on file Travel History Travel Start Travel End No recent travel history available. documented as of this encounter Last Filed Vital Signs Not on filedocumented in this encounter Plan of Treatment Date Type Specialty Care Team Description 11/30/2018 Routine Obstetrics & Liz Xavier, Visit Gynecology JOSE [address] [place] [phone] Health Maintenance Due Date Last Done [...] ID Effective Phone Address Type Group Dates [facility] [id number] 2014-Pre [phone] P [address] BOX PPO/POS - OUT OF STATE sent [id number] [place] [address] [facility] xxxxxxxxx 2018-[facility] Medicaid [facility] HEALTH PLAN - MANAGED MEDICAID documented as of this encounter
--- OUTSIDE RECORDS SUMMARY | 2019-03-15 13:30 | XMS REPORT | Summary of Care ---
:1985 Author Organization [facility] Address [address] [place] [address] Care Team Providers Name Role Phone Sree Maravillaevan Hemant Primary Care Provider Pcp, Patient Does Not Have A Primary Care Provider Encounter Details Date Type Department Care Team Description 10/18/2018 Orders Only [facility] Doctor Unassigned, No 301 [facility] [place] [facility] [place] [address] Allergies Active Allergy Reactions Severity Noted Date [...] Obstetrics & Liz Xavier, Visit Gynecology JOSE [address] [phone] Health Maintenance Due Date Last Done Comments DTaP,Tdap,and Td Vaccines (1 - 2002 Tdap) INFLUENZA VACCINE (#1) 2018 05/28/2018 PAP SMEAR 05/28/2021 05/28/2018 PNEUMOCOCCAL 0-64 YEARS COMBINED Aged Out No longer eligible based on SERIES patient's age to complete this topic documented as of this encounter Procedures Procedure Name Priority Date/Time Associated Diagnosis Comments MEDICATION CORRESPONDENCE Routine 10/18/2018 12:01 AM CDT documented in this encounter Results Not on filedocumented in this encounter Insurance Payer Benefit Plan / Subscriber ID Effective Phone Address Type Group Dates [facility] [id number] 2014-Pre [phone] PPO/POS - OUT OF STATE sent [phone] [place] [address] [facility] xxxxxxxxx 2018-Prese Medicaid CHILDRENS HEALTH nt HEALTH PLAN - MANAGED MEDICAID documented as of this encounter
--- OUTSIDE RECORDS SUMMARY | 2019-03-15 13:30 | XMS REPORT | Summary of Care ---
:1985 Author Organization [facility] Address [address] [place] [address] Care Team Providers Name Role Phone Pcp, Patient Does Not Have A Primary Care Provider Reason for Visit Reason Comments ROUTINE VISIT Encounter Details Date Type Department Care Team Description 10/31/2018 Routine [facility] Women's Pulido, Gabreilla Llamas MD Supervision of high risk in second trimester (Primary Dx); Visit Healthcare- [address] [place] [address] 16 weeks gestation of ; Noemi HECK History of delivery, currently [address] [place] [address] [address] [place] [phone] Allergies Active Allergy Reactions Severity Noted Date Comments Aspirin Shortness of Breath 03/09/2018 Nsaids (Non-Steroidal Shortness of Breath 03/09/2018 Anti-Inflammatory Drug) Penicillin Hives 03/09/2018 documented as of this encounter (statuses as of 11/02/2018) Medications Medication Sig Dispensed Refills Start Date [...] as of this encounter (statuses as of 11/02/2018) Active Problems Problem Noted Date History of [...] as of this encounter (statuses as of 11/02/2018) Immunizations Name Administration Dates Next Due Influenza [...] Sign Reading Time Taken Comments Blood Pressure 100/64 10/31/2018 3:38 PM CDT Pulse 91 10/31/2018 3:38 PM CDT Temperature 37 C (98.6 F) 10/31/2018 3:38 PM CDT Respiratory Rate 20 10/31/2018 3:38 PM CDT Oxygen Saturation - - Inhaled Oxygen Concentration - - Weight 73.5 kg (162 lb) 10/31/2018 3:38 PM CDT Height 162.6 cm (5' 4") 10/31/2018 3:38 PM CDT Body Mass Index 27.81 10/31/2018 3:38 PM CDT documented in this encounter Progress Notes Gabriella Pulido MD - 10/31/2018 4:00 PM CDT Chief complaint: Chief Complaint Patient presents with ROUTINE VISIT HPI Denies contractions, vaginal bleeding, LOF, dysuria, or PIH symptoms. + active FM. Histories OB History Para Term AB Living 8 6 5 1 1 6 SAB TAB Ectopic Multiple Live Births 1 0 0 0 6 # Outcome Date GA Lbr Jc/2nd Weight Sex Delivery Anes PTL Lv 8 Current 7 04/10/17 36w1d CS-Unspec Complications: Breech presentation 6 SAB 01/04/15 5w6d 5 Term 4 Term 3 Term 2 Term 1 Term Past Medical History: Diagnosis Date Anemia Anxiety Asthma Bipolar disorder Depression Diabetes mellitus only Genital herpes Family History Problem Relation Age of Onset Depression Mother Diabetes Mother Neurological Mother Seizures Depression Father Depression Sister Psychiatry Sister Bipolar Asthma Brother Depression Brother Breast Cancer Maternal Aunt Depression Maternal Aunt Mental retardation Maternal Aunt After febrile illness Depression Maternal Uncle Depression Paternal Aunt Depression Paternal Uncle Arthritis Maternal Grandmother Asthma Maternal Grandmother Depression Maternal Grandmother Diabetes Maternal Grandmother Depression Maternal Grandfather Depression Paternal Grandmother Depression Paternal Grandfather Diabetes Paternal Grandfather Neurological Other defects NoFHx Genetic NoFHx Colon Cancer NoFHx Ovarian Cancer NoFHx Uterine Cancer NoFHx Cancer NoFHx Heart NoFHx High cholesterol NoFHx Hypertension NoFHx Osteoporosis NoFHx Family Status Relation Name Status Mo Alive Fa Alive Sis (Not Specified) Bro (Not Specified) MAunt (Not Specified) MUnc (Not Specified) PAunt (Not Specified) PUnc (Not Specified) MGMo (Not Specified) MGFa (Not Specified) PGMo (Not Specified) PGFa (Not Specified) OTHER Niece Alive NoFHx (Not Specified) Past Surgical History: Procedure Laterality Date SECTION EXPLORATORY LAPAROSCOPY (SHX) TUBAL LIGATION 03/2006 TUBAL REANASTOMOSIS 07/2014 Social History Socioeconomic History Marital status: Spouse name: Not on file Number of children: Not on file Years of education: Not on file Highest education level: Not on file Occupational History Not on file Social Needs Financial resource strain: Not on file Food insecurity: Worry: Not on file Inability: Not on file Transportation needs: Medical: Not on file Non-medical: Not on file Tobacco Use Smoking status: Never Smoker Smokeless tobacco: Never Used Substance and Sexual Activity Alcohol use: Yes Comment: rare Drug use: No Sexual activity: Yes Partners: Male control/protection: None Lifestyle Physical activity: Days per week: Not on file Minutes per session: Not on file Stress: Not on file Relationships Social connections: Talks on phone: Not on file Gets together: Not on file Attends bahai service: Not on file Active member of club or organization: Not on file Attends meetings of clubs or organizations: Not on file Relationship status: Not on file Intimate partner violence: Fear of current or ex partner: Not on file Emotionally abused: Not on file Physically abused: Not on file Forced sexual activity: Not on file Other Topics Concern Not on file Social History Narrative Denies household violence or abuse Social History Substance and Sexual Activity Sexual Activity Yes Partners: Male control/protection: None Labs No new labs Radiology I have reviewed the patient's radiology. 10/26/18 USG Allergies Norma is allergic to aspirin; nsaids (non-steroidal anti-inflammatory drug); and penicillin. Medications Norma has a current medication list which includes the following prescription (s): hydroxyprogesterone(pf), montelukast, cephalexin, metronidazole, acyclovir , doxylamine, montelukast, fluticasone propionate, vit calc,iron,folic , acyclovir, and fexofenadine hcl. Review of Systems Constitutional: Negative for chills, fatigue and fever. HENT: Negative for congestion, rhinorrhea, sneezing and sore throat. Eyes: Negative for photophobia and visual disturbance. Respiratory: Negative for cough, chest tightness, shortness of breath and wheezing. Cardiovascular: Negative for chest pain and palpitations. Gastrointestinal: Negative for abdominal distention, abdominal pain, constipation, diarrhea, nausea and vomiting. Genitourinary: Negative for dysuria, urgency, frequency, vaginal bleeding and vaginal discharge. Skin: Negative for rash. Neurological: Negative for syncope and headaches. Hematological: Does not bruise/bleed easily. BP 100/64 (BP Location: Left arm, Patient Position: Sitting, BP CUFF SIZE: Adult Medium) | Pulse 91 | Temp 37 C (98.6 F) | Resp 20 | Ht 5' 4" ( 1.626 m) | Wt 162 lb (73.5 kg) | LMP 06/07/2018 (Exact Date) | BMI 27.81 kg/ m Pregravid BMI: 23.7 Physical Exam Vitals reviewed. Constitutional: She is oriented to person, place, and time. She appears well- developed and well-nourished. Cardiovascular: Regular rate and rhythm. Pulmonary/Chest: Normal inspiratory effort. Abdominal: Abdomen is soft. No tenderness present. No hernia palpated or inspected. Neuro/Psychiatric: She has a normal mood and affect. She is oriented to person, place, and time. Skin: Skin normal. No rash present. Assessment/Plan See OB Summary Return to clinic in 4 weeks. Reviewed patient instructions and provided printed copy. Activity restrictions: As tolerated at 21w0d This visit did not involve counseling and coordination that comprised more than 50% of the visit time. Gabriella Pulido MD 11/01/2018 6:15 AM documented in this encounter Plan of Treatment Date Type Specialty Care Team Description 11/30/2018 Routine Obst[facility] & Liz Xavier[facility] [address] [place] [phone] Health Maintenance Due Date Last Done Comments DTaP,Tdap,and Td Vaccines (1 - 2002 Tdap) INFLUENZA VACCINE (#1) 2018 05/28/2018 PAP SMEAR 05/28/2021 05/28/2018 PNEUMOCOCCAL 0-64 YEARS COMBINED Aged Out No longer eligible based on SERIES patient's age to complete this topic documented as of this encounter Results Not on filedocumented in this encounter Visit Diagnoses Diagnosis Supervision of high risk in second trimester - Primary Unspecified high-risk 16 weeks gestation of state, incidental History of delivery, currently with history of pre-term labor documented in this encounter Insurance Payer Benefit Plan / Subscriber ID Effective Phone Address Type Group Dates [facility] [id number] 2014-Pre [phone] P O BOX PPO/POS - OUT OF STATE sent [phone] [id number] [place] [address] [facility] xxxxxxxxx 2018-Prese Medicaid CHILDRENS HEALTH nt HEALTH PLAN - MANAGED MEDICAID documented as of this encounter
--- OUTSIDE RECORDS SUMMARY | 2019-03-15 13:30 | XMS REPORT | Summary of Care ---
:1985 [address] [facility] Address [address] [place] [address] Care Team Providers Name Role Phone Pcp, Patient Does Not Have A Primary Care Provider Reason for Visit Reason Comments Orders Encounter Details Date Type Department Care Team Description 11/07/2018 Telephone [facility] Women's PulidoGabriella MD Orders Healthcare- [address] DRLuis 146 [facility], Suite [facility] [address] [place] [address] [place] [phone] Allergies Active Allergy Reactions Severity Noted Date Comments Aspirin Shortness of Breath 03/09/2018 Nsaids (Non-Steroidal Shortness of Breath 03/09/2018 Anti-Inflammatory Drug) Penicillin Hives 03/09/2018 documented as of this encounter (statuses as of 11/07/2018) Medications Medication Sig Dispensed Refills Start Date [...] as of this encounter (statuses as of 11/07/2018) Active Problems Problem Noted Date History of [...] as of this encounter (statuses as of 11/07/2018) Immunizations Name Administration Dates Next Due Influenza [...] & Liz Xavier, Visit Gynecology JOSE [address] [phone] Health Maintenance Due Date Last [...] ID Effective Phone Address Type Group Dates [facility] [id number] 2014-Pre [phone] O BOX PPO/POS - OUT OF STATE sent [phone] [place] [address] [facility] xxxxxxxxx 2018-Prese Medicaid CHILDRENS HEALTH nt HEALTH PLAN - MANAGED MEDICAID documented as of this encounter
--- OUTSIDE RECORDS SUMMARY | 2019-03-15 13:30 | XMS REPORT | Summary of Care ---
:1985 Author Organization [facility] Address [address] [place] [address] Care Team Providers Name Role Phone Pcp, Patient Does Not Have A Primary Care Provider Reason for Visit Reason Comments SHOTS Cipriano Encounter Details Date Type Department Care Team Description 11/08/2018 Nurse Visit [facility] Women's Pulido, Gabriella Llamas MD [address] [place] [address] DRLuis Paulo [address] [place] [address] History of Healthcare- [place] Nurse, [facility] delivery, currently [address] [place] [address], (Primary Dx) [address] [place] [phone] Allergies Active Allergy Reactions Severity Noted Date Comments Aspirin Shortness of Breath 03/09/2018 Nsaids (Non-Steroidal Shortness of Breath 03/09/2018 Anti-Inflammatory Drug) Penicillin Hives 03/09/2018 documented as of this encounter (statuses as of 11/08/2018) Medications Medication Sig Dispensed Refills Start Date End Date Status fexofenadine HCl Take by 0 Active (MALKIA ORAL) mouth. ACYCLOVIR ORAL Take by 0 [...] skin. It is given by a health care services manager in a hospital or clinic setting. Talk to your legal billing clerk regarding the use of this medicine in children. Special care may be needed. What side effects may I notice from receiving this medicine? Side effects that you should report to your doctor or health care services manager as soon as possible: allergic reactions like [...] attention (report to your doctor or health care services manager if they continue or are bothersome): diarrhea fluid retention and swelling nausea pain, redness, or irritation at site where injected What may interact with this medicine? Significant interactions are not expected. What if I miss a dose? It is important not to miss your dose. Call your doctor or health care services manager if you are unable to keep an [...] Obstetrics & Liz Xavier, Visit Gynecology JOSE [address] [place] [phone] Health Maintenance Due Date Last Done [...] ID Effective Phone Address Type Group Dates [facility] [id number] 2014-Pre [phone] P O BOX PPO/POS - OUT OF STATE sent [phone] [place] [address] [facility] xxxxxxxxx 2018-Prese Medicaid CHILDRENS HEALTH nt HEALTH PLAN - MANAGED MEDICAID documented as of this encounter
--- OUTSIDE RECORDS SUMMARY | 2019-03-15 13:30 | XMS REPORT | Summary of Care ---
:1985 Author Organization [facility] Address [address] [place] [address] Care Team Providers Name Role Phone Pcp, Patient Does Not Have A Primary Care Provider Encounter Details Date Type Department Care Team Description 10/30/2018 Orders Only [facility] Doctor Unassigned, No 301 [facility] [place] [address] [address] [place] [address] Allergies Active Allergy Reactions Severity Noted Date Comments Aspirin Shortness of Breath 03/09/2018 Nsaids (Non-Steroidal Shortness of Breath 03/09/2018 Anti-Inflammatory Drug) Penicillin Hives 03/09/2018 documented as of this encounter (statuses as of 11/10/2018) Medications Medication Sig Dispensed Refills Start Date [...] mouth daily. Seasonal allergic rhinitis, unspecified trigger documented as of this encounter (statuses as of 11/10/2018) Active Problems Problem Noted Date History of [...] as of this encounter (statuses as of 11/10/2018) Immunizations Name Administration Dates Next Due Influenza [...] Description 11/15/2018 Nurse Visit Obstetrics & Nurse, [facility] 11/30/2018 Routine Obstetrics & Liz Xavier, Visit Gynecology [facility]AB[facility] [address] [place] [phone] Health Maintenance Due Date Last Done Comments DTaP,Tdap,and Td Vaccines (1 - 2002 Tdap) INFLUENZA VACCINE (#1) 2018 05/28/2018 PAP SMEAR 05/28/2021 05/28/2018 PNEUMOCOCCAL 0-64 YEARS COMBINED Aged Out No longer eligible based on SERIES patient's age to complete this topic documented as of this encounter Procedures Procedure Name Priority Date/Time Associated Diagnosis Comments CONSENT FOR CONTRACEPTION Routine 10/30/2018 12:01 AM CDT documented in this encounter Results Not on filedocumented in this encounter Insurance Payer Benefit Plan / Subscriber ID Effective Phone Address Type Group Dates [facility] [id number] 2014-Pre [phone] O BOX PPO/POS - OUT OF STATE sent [phone] [place] [address] [facility] xxxxxxxxx 2018-Prese Medicaid CHILDRENS HEALTH nt HEALTH PLAN - MANAGED MEDICAID documented as of this encounter
--- OUTSIDE RECORDS SUMMARY | 2019-03-15 13:31 | XMS REPORT | Summary of Care ---
:1985 Author Organization [facility] Address [address] [place] [address] Care Team Providers Name Role Phone Pcp, Patient Does Not Have A Primary Care Provider Reason for Visit Reason Comments INJECTION Cipriano Encounter Details Date Type Department Care Team Description 11/22/2018 Nurse Visit [facility] Women's Pulido, Gabriella Llamas MD [address] [place] [address] DRLuis [address] [place] [address] History of delivery, currently (Primary Dx) ; Healthcare- [place] Nurse, [facility] 24 weeks gestation of [address] [place] [address], [address] [place] [phone] Allergies Active Allergy Reactions Severity Noted Date Comments Aspirin Shortness of Breath 03/09/2018 Nsaids (Non-Steroidal Shortness of Breath 03/09/2018 Anti-Inflammatory Drug) Penicillin Hives 03/09/2018 documented as of this encounter (statuses as of 11/23/2018) Medications Medication Sig Dispensed Refills Start Date End Date Status fexofenadine HCl Take by mouth. 0 Active (MALIKA ORAL) fluticasone propionate Use in each 0 Active (FLONASE NASAL) nostril. vit Take by mouth. 0 Active calc,iron,folic ( VITAMIN ORAL) acyclovir 400 mg tablet 0 05/25/2018 Active doxylamine (UNISOM, Take by mouth. 0 Active [...] mouth daily. Seasonal allergic rhinitis, unspecified trigger famotidine (PEPCID) 20 Take 1 tablet by 30 tablet 1 11/19/2018 Active mg tablet mouth daily. Hospital, Clinic, or Other Ordered Dose Route Frequency Start Date End Date Status Facility Administered Medication hydroxyprogesterone(PF) 275 mg SC QWEEKLY 11/09/2018 02/22/2019 Active (CIPRIANO AUTO-INJECTOR) 275 mg/1.1 mL injection 275 mg documented as of this encounter (statuses as of 11/23/2018) Active Problems Problem Noted Date History of [...] as of this encounter (statuses as of 11/23/2018) Immunizations Name Administration Dates Next Due Influenza [...] Sign Reading Time Taken Comments Blood Pressure 97/62 11/22/2018 3:36 PM CDT Pulse 95 11/22/2018 3:36 PM CDT Temperature 36.6 C (97.9 F) 11/22/2018 3:36 PM CDT Respiratory Rate 18 11/22/2018 3:36 PM CDT Oxygen Saturation - - Inhaled Oxygen Concentration - - Weight 73.9 kg (163 lb) 11/22/2018 3:36 PM CDT Height - - Body Mass Index 27.98 10/31/2018 3:38 PM CDT documented in this encounter Progress Notes Nikko Neil - 11/22/2018 3:30 PM CDT33 year old female has been identified by and name. Verbal consent has been obtained by patientto have an injection, as ordered by the provider. NDC (National Drug Code) 38364. Patient or state-supplied medications?: patient supplied Has ABN (Advanced Beneficiary Notice) been completed? No Previous/Current Encounter Diagnosis: O09.219 Patient request that it be given in the Left arm ONLY The site was cleaned with an alcohol swab and given subcutaneously (SQ). A band aid dressing was then applied to the injection site. The patient tolerated the procedure well , no rash, swelling or reaction noted. Patient provided with preferred teaching of verbal information on Anaphylaxis. Shows readiness to learn. Verbal/Written instruction teaching provided. Individual is able to read and verbalizes understanding of teaching provided. Signs and Symptoms of Anaphylaxis (severe allergic reaction) are: Tingling, itching or metallic taste in mouth; hives; difficulty breathing; swelling and/ or itching of mouth and/or throat; diarrhea, vomiting, cramps and stomach pain; paleness; loss of consciousness. IF YOU HAVE ANY OF THE SYMPTOMS ABOVE, ACT FAST !!! CALL 911 IMMEDIATELY IF YOU HAVE A PRESCRIBED EPI-PEN PLEASE USE IT NOW. documented in this encounter Plan of Treatment Date Type Specialty Care Team Description 11/30/2018 Routine Obstetrics & Liz Xavier, Visit Gynecology JOSE [address] [phone] Health Maintenance Due Date Last [...] - Primary with history of pre-term labor 24 weeks gestation of state, incidental documented in this encounter Insurance Payer Benefit Plan / Subscriber ID Effective Phone Address Type Group Dates [facility] [id number] 2014-Pre [phone] P O BOX PPO/POS - OUT OF STATE sent [phone] [place] [address] [facility] xxxxxxxxx 2018-Prese Medicaid CHILDRENS HEALTH nt HEALTH PLAN - MANAGED MEDICAID documented as of this encounter
--- OUTSIDE RECORDS SUMMARY | 2019-03-15 13:31 | XMS REPORT | Summary of Care ---
:1985 Author Organization [facility] Address [address] [place] [address] Care Team Providers Name Role Phone Pcp, Patient Does Not Have A Primary Care Provider Encounter Details Date Type Department Care Team Description 11/30/2018 Patient Secure Msg [facility] [address] [place] [phone] Allergies Active Allergy Reactions Severity Noted Date Comments Aspirin Shortness of Breath 03/09/2018 Nsaids (Non-Steroidal Shortness of Breath 03/09/2018 Anti-Inflammatory Drug) Penicillin Hives 03/09/2018 documented as of this encounter (statuses as of 11/30/2018) Medications Medication Sig Dispensed Refills Start Date [...] as of this encounter (statuses as of 11/30/2018) Active Problems Problem Noted Date History of [...] as of this encounter (statuses as of 11/30/2018) Immunizations Name Administration Dates Next Due Influenza [...] Obstetrics & Liz Xavier, Visit Gynecology JOSE [address] [place] [phone] Health Maintenance Due Date Last Done [...] Effective Phone Address Type Group Dates [facility] [id number] 2014-Pre [phone] P O BOX PPO/POS - OUT OF STATE sent [phone] [place] [address] [facility] xxxxxxxxx 2018-Prese Medicaid CHILDRENS HEALTH nt HEALTH PLAN - MANAGED MEDICAID documented as of this encounter
--- OUTSIDE RECORDS SUMMARY | 2019-03-15 13:31 | XMS REPORT | Summary of Care ---
:1985 Author Organization [facility] Address [address] [place] [address] Care Team Providers Name Role Phone Pcp, Patient Does Not Have A Primary Care Provider Reason for Visit Reason Comments SHOTS 17OHP Encounter Details Date Type Department Care Team Description 11/15/[address] [facility] Women's Pulido, Gabriella Llamas MD [address] [place] [address] [address] [place] [address] History of Healthcare- [place] Nurse, [facility] delivery, currently [address] [facility], (Primary Dx) [address] [place] [address] Allergies Active Allergy Reactions Severity Noted Date Comments Aspirin Shortness of Breath 03/09/2018 Nsaids (Non-Steroidal Shortness of Breath 03/09/2018 Anti-Inflammatory Drug) Penicillin Hives 03/09/2018 documented as of this encounter (statuses as of 11/15/2018) Medications Medication Sig Dispensed Refills Start Date End Date Status fexofenadine HCl Take by 0 Active (MALIKA ORAL) mouth. fluticasone Use in each 0 Active propionate (FLONASE nostril. NASAL) vit Take by 0 Active calc,iron,folic mouth. ( VITAMIN ORAL) acyclovir 400 mg 0 05/25/2018 Active tablet doxylamine (UNISOM, [...] mouth Seasonal allergic daily. rhinitis, unspecified trigger ACYCLOVIR ORAL Take by 0 11/15/2018 Discontinued mouth. montelukast 10 mg 0 05/25/2018 11/15/2018 Discontinued tablet Hospital, Clinic, or Other Ordered Dose Route Frequency Start Date End Date Status Facility Administered Medication hydroxyprogesterone(PF) 275 mg SC QWEEKLY 11/09/2018 02/22/2019 Active (CIPRIANO AUTO-INJECTOR) 275 mg/1.1 mL injection 275 mg documented as of this encounter (statuses as of 11/15/2018) Active Problems Problem Noted Date History of [...] as of this encounter (statuses as of 11/15/2018) Immunizations Name Administration Dates Next Due Influenza [...] Sign Reading Time Taken Comments Blood Pressure 101/59 11/15/2018 8:37 AM CDT Pulse 96 11/15/2018 8:37 AM CDT Temperature 36.7 C (98.1 F) 11/15/2018 8:37 AM CDT Respiratory Rate 16 11/15/2018 8:37 AM CDT Oxygen Saturation - - Inhaled Oxygen Concentration - - Weight 75.4 kg (166 lb 3.2 oz) 11/15/2018 8:37 AM CDT Height - - Body Mass Index 28.53 10/31/2018 3:38 PM CDT documented in this encounter Progress Notes Zoe Franklin RN - 11/15/2018 9:00 AM CDTPt here for Cipriano injection. Given as ordered. Tolerated well. No reaction noted post injection. RTC in 1 week. Understanding verbalized. documented in this encounter Plan of Treatment Date Type Specialty Care Team Description 11/30/2018 Routine Obstetrics & Liz Xavier, Visit Gynecology JOSE [address] [place] [phone] Health Maintenance Due Date Last Done [...] Phone Address Type Group Dates [facility] [id number] 2014-Pre [phone] PPO/POS - OUT OF STATE sent [phone] [place] [address] [facility] xxxxxxxxx 2018-Prese Medicaid [employer] nt HEALTH PLAN - MANAGED MEDICAID documented as of this encounter
--- OUTSIDE RECORDS SUMMARY | 2019-03-15 13:31 | XMS REPORT | Summary of Care ---
:1985 Author Organization [facility] Address [address] [place] [address] Care Team Providers Name Role Phone Pcp, Patient Does Not Have A Primary Care Provider Reason for Visit Reason Comments ROUTINE VISIT INJECTION CIPRIANO Encounter Details Date Type Department Care Team Description 11/30/2018 Routine [facility] Women's Liz Xavier, Supervision of high risk in second trimester (Primary Dx); Visit Healthcare- PA-C 25 weeks gestation of [address] [facility] [address] [place] [phone] Allergies Active Allergy Reactions Severity Noted Date [...] 1 11/19/2018 Active mg tablet mouth daily. famotidine 20 mg tablet Take 1 tablet by 60 tablet 1 11/30/2018 Active mouth 2 (two) times daily. Hospital, Clinic, or Other Ordered Dose [...] Sign Reading Time Taken Comments Blood Pressure 97/63 11/30/2018 9:41 AM CDT Pulse 81 11/30/2018 9:41 AM CDT Temperature 36.7 C (98.1 F) 11/30/2018 9:41 AM CDT Respiratory Rate 20 11/30/2018 9:41 AM CDT Oxygen Saturation - - Inhaled Oxygen Concentration - - Weight 76.2 kg (168 lb) 11/30/2018 9:41 AM CDT Height 162.6 cm (5' 4") 11/30/2018 9:41 AM CDT Body Mass Index 28.84 11/30/2018 9:41 AM CDT documented in this encounter Progress Notes Liz Xavier PA-C - 11/30/2018 9:30 AM CDT Chief complaint: Chief Complaint Patient presents with ROUTINE VISIT INJECTION CIPRIANO LANDEROS Norma Cantu is a 33 year old female @ 25w1d coming in for PN visit. Denies contractions, vaginal bleeding, LOF, dysuria, or [...] file Gets together: Not on file Attends nondenominational service: Not on file Active member of [...] Activity Yes Partners: Male control/protection: None Labs none Radiology none Allergies Norma is allergic to aspirin; nsaids (non-steroidal anti-inflammatory drug); and penicillin. Medications Norma has a current medication list which includes the following prescription (s): famotidine, montelukast, cephalexin, metronidazole, acyclovir, doxylamine, fluticasone propionate, vit calc,iron,folic, and fexofenadine hcl, and the following Facility-Administered Medications: hydroxyprogesterone(pf). Review of Systems Constitutional: Negative for appetite change, fatigue and fever. HENT: Negative for rhinorrhea and sore throat. Eyes: Negative for pain and itching. Respiratory: Negative for cough, chest tightness and shortness of breath. Breasts: Negative for discharge, mass and pain. Cardiovascular: Negative for chest pain, palpitations and leg swelling. Gastrointestinal: Negative for abdominal pain, constipation, diarrhea and nausea. Genitourinary: Negative for bladder incontinence, dysuria, vaginal discharge, difficulty urinating, vaginal pain and pelvic pain. Musculoskeletal: Negative for gait problem and myalgias. Skin: Negative for rash. Neurological: Negative for dizziness and headaches. Psychiatric/Behavioral: Negative for suicidal ideas. The patient is not nervous/ anxious. Endocrine: Negative for hair loss. LMP 06/07/2018 (Exact Date) Pregravid BMI: 23.7 Physical Exam Vitals reviewed. Constitutional: She is oriented to person, place, and time. She appears well- developed and well-nourished. Neck: No mass. No thyromegaly palpated. No neck adenopathy. Cardiovascular: Regular rate and rhythm. Pulmonary/Chest: Normal inspiratory effort. Abdominal: Abdomen is soft. No tenderness present. No hernia palpated or inspected. Neuro/Psychiatric: She has a normal mood and affect. She is oriented to person, place, and time. Skin: Skin normal. Lymphadenopathy: No neck adenopathy present. No axillary adenopathy present. No inguinal adenopathy present. Assessment/Plan SEE OB SUMMARY Return to clinic in 4 weeks. Discussed treatment options. Reviewed patient instructions and provided printed copy. Activity restrictions: As tolerated This visit did not involve counseling and coordination that comprised more than 50% of the visit time. Liz Xavier PA-C 11/30/2018 9:45 AM documented in this encounter Plan of Treatment Date Type Specialty Care Team Description 12/07/2018 Nurse Visit Obstetrics & Gynecology Nurse, [facility] Women's Health 12/20/2018 Nurse Visit Obstetrics & Gynecology Nurse, [facility] Women's Health Name Type Priority Associated Diagnoses Order Schedule GLUCOSE 1 HOUR POST LAB Routine Supervision of high risk Expected: 2018, PRANDIAL in second Expires: 03/01/2019 trimester 25 weeks gestation of MALU SCOTT - LAB Routine Supervision of high risk Expected: 2018 RPR in second (Approximate), trimester Expires: 03/01/2019 25 weeks gestation of ADC, CLC OR LCC ONLY - LAB Routine Supervision of high risk Expected: 11/30 HIV TYPE 1 AND 2 in second (Approximate), ANTIBODY SCREEN WITH trimester Expires: 03/01/2019 P24 25 weeks gestation of WORKUP, BLOOD LAB Routine Supervision of high risk Expected: 11/30, BANK in second Expires: 03/01/2019 trimester 25 weeks gestation of CBC WITH DIFF LAB Routine Supervision of high risk Expected: 11/30/2018, in second Expires: 03/01/2019 trimester 25 weeks gestation of Health Maintenance Due Date Last Done Comments [...] in second trimester - Primary Unspecified high-risk 25 weeks gestation of state, incidental documented in this encounter Administered Medications Medication Order MAR Action Action Date Dose Rate Site hydroxyprogesterone(PF) Given 11/30/2018 9:45 AM CDT 275 mg Left Arm (CIPRIANO AUTO-INJECTOR) 275 mg/1.1 mL injection 275 mg 275 mg, Subcutaneous, QWEEKLY, 15 doses, First dose on Mon11/09/18 at 0900, Last dose on Mon02/15/19 at 0900, Routine documented in this encounter Insurance Payer Benefit Plan / Subscriber ID Effective Phone Address Type Group Dates [facility] [id number] 2014-Pre [phone] [address] PPO/POS - OUT OF STATE sent [id number] [place] [address] [facility] xxxxxxxxx 2018-Pres Medicaid [facility] HEALTH PLAN - MANAGED MEDICAID documented as of this encounter
--- OUTSIDE RECORDS SUMMARY | 2019-03-15 13:31 | XMS REPORT | Summary of Care ---
:1985 Author Organization [facility] Address [address] [place] [address] Care Team Providers Name Role Phone Pcp, Patient Does Not Have A Primary Care Provider Reason for Visit Reason Comments ROUTINE VISIT INJECTION CIPRIANO Encounter Details Date Type Department Care Team Description 11/30/2018 Routine [facility] Women's Liz Xavier, Supervision of high risk in second trimester (Primary Dx); Visit Healthcare- PA-C 25 weeks gestation of [address] [facility] [address] [place] [phone] Allergies Active Allergy Reactions Severity Noted Date [...] documented in this encounter Plan of Treatment Name Type Priority Associated Diagnoses Order Schedule GLUCOSE 1 HOUR POST LAB Routine Supervision of high risk Expected: 2018, PRANDIAL in second Expires: 03/01/2019 trimester 25 weeks gestation of ADC OR ANT ONLY - LAB Routine Supervision of high [...] ID Effective Phone Address Type Group Dates [facility] [id number] 2014-Pre [phone] PPO/POS - OUT OF STATE sent [id number] [place] [address] [facility] xxxxxxxxx 2018-Prese Medicaid [employer] nt HEALTH PLAN - MANAGED MEDICAID documented as of this encounter
--- OUTSIDE RECORDS SUMMARY | 2019-03-15 13:31 | XMS REPORT | Summary of Care ---
:1985 Author Organization [facility] Address [address] [place] [address] Care Team Providers Name Role Phone Pcp, Patient Does Not Have A Primary Care Provider Encounter Details Date Type Department Care Team Description 11/19/2018 Patient Secure Msg [facility] [address] [place] [phone] Allergies Active Allergy Reactions Severity Noted Date Comments Aspirin Shortness of Breath 03/09/2018 Nsaids (Non-Steroidal Shortness of Breath 03/09/2018 Anti-Inflammatory Drug) Penicillin Hives 03/09/2018 documented as of this encounter (statuses as of 11/19/2018) Medications Medication Sig Dispensed Refills Start Date [...] as of this encounter (statuses as of 11/19/2018) Active Problems Problem Noted Date History of [...] as of this encounter (statuses as of 11/19/2018) Immunizations Name Administration Dates Next Due Influenza [...] Treatment Date Type Specialty Care Team Description 11/22/2018 Nurse Visit Obstetrics & Nurse, [facility] Women's Gynecology Health 11/30/2018 Routine Obstetrics & Liz Xavier, Visit Gynecology JOSE [address] [address] [phone] Health Maintenance Due Date Last Done Comments [...] ID Effective Phone Address Type Group Dates [facility] [id number] 2014-Pre [phone] [address]OX PPO/POS - OUT OF STATE sent [phone] [place] [address] [facility] xxxxxxxxx 2018-Prese Medicaid [facility] nt HEALTH PLAN - MANAGED MEDICAID documented as of this encounter
--- OUTSIDE RECORDS SUMMARY | 2019-03-15 13:31 | XMS REPORT | Summary of Care ---
:1985 Author Organization [facility] Address [address] [place] [address] Care Team Providers Name Role Phone Pcp, Patient Does Not Have A Primary Care Provider Encounter Details Date Type Department Care Team Description 11/12/2018 Orders Only [facility] Doctor Unassigned, [address] [facility] [place] [address] [address] [place] [address] Allergies Active Allergy Reactions Severity Noted Date Comments Aspirin Shortness of Breath 03/09/2018 Nsaids (Non-Steroidal Shortness of Breath 03/09/2018 Anti-Inflammatory Drug) Penicillin Hives 03/09/2018 documented as of this encounter (statuses as of 11/18/2018) Medications Medication Sig Dispensed Refills Start Date [...] mouth daily. Seasonal allergic rhinitis, unspecified trigger Hospital, Clinic, or Other Ordered Dose Route Frequency Start Date End Date Status Facility Administered Medication hydroxyprogesterone(PF) 275 mg SC QWEEKLY 11/09/2018 02/22/2019 Active (CIPRIANO AUTO-INJECTOR) 275 mg/1.1 mL injection 275 mg documented as of this encounter (statuses as of 11/18/2018) Active Problems Problem Noted Date History of [...] as of this encounter (statuses as of 11/18/2018) Immunizations Name Administration Dates Next Due Influenza [...] Description 11/22/2018 Nurse Visit Obstetrics & Nurse, [facility] Women's Gynecology Health 11/30/2018 Routine Obstetrics & Liz Xavier, Visit Gynecology JOSE [address] [place] [phone] Health Maintenance Due Date Last Done Comments DTaP,Tdap,and Td Vaccines (1 - 2002 Tdap) INFLUENZA VACCINE (#1) 2018 05/28/2018 PAP SMEAR 05/28/2021 05/28/2018 PNEUMOCOCCAL 0-64 YEARS COMBINED Aged Out No longer eligible based on SERIES patient's age to complete this topic documented as of this encounter Procedures Procedure Name Priority Date/Time Associated Diagnosis Comments DME/SUPPLY JUSTIFICATION Routine 11/12/2018 12:01 AM CDT documented in this encounter Results Not on filedocumented in this encounter Insurance Payer Benefit Plan / Subscriber ID Effective Phone Address Type Group Dates [facility] [id number] 2014-Pre [phone] P O BOX PPO/POS - OUT OF STATE sent [id number] [place] [address] [facility] xxxxxxxxx 2018-Prese Medicaid [employer] nt HEALTH PLAN - MANAGED MEDICAID documented as of this encounter
--- OUTSIDE RECORDS SUMMARY | 2019-03-15 13:32 | XMS REPORT | Summary of Care ---
:1985 Author Organization [facility] Address [address] [place] [address] Care Team Providers Name Role Phone Pcp, Patient Does Not Have A Primary Care Provider Reason for Visit Reason Comments ROUTINE VISIT INJECTION CIPRIANO Encounter Details Date Type Department Care Team Description 11/30/2018 Routine [facility] Women's Liz Xavier, Supervision of high risk in second trimester (Primary Dx); Visit Healthcare- PA-C 25 weeks gestation of [address] [facility] [address] [place] [phone] Allergies Active Allergy Reactions Severity Noted Date [...] file Gets together: Not on file Attends adventist service: Not on file Active member of [...] Team Description 12/07/2018 Nurse Visit Obstetrics & Nurse, [facility] Women's Gynecology Health 12/20/2018 Nurse Visit Obstetrics & Nurse, [facility] Women's Gynecology Health 12/26/2018 Routine Obstetrics & Pulido, Gabriella Llamas MD Visit Gynecology [address] [place] [address] [place] [address] [phone] Name Type Priority Associated Diagnoses Order Schedule [...] ID Effective Phone Address Type Group Dates [facility] BCBS [facility] [id number] 2014-Pre [phone] PPO/POS - OUT OF STATE sent [id number] [place] [address] [facility] xxxxxxxxx 2018-Prese Medicaid [facility] nt HEALTH PLAN - MANAGED MEDICAID documented as of this encounter
--- OUTSIDE RECORDS SUMMARY | 2019-03-15 13:32 | XMS REPORT | Summary of Care ---
:1985 Author Organization [facility] Address [address] [place] [address] Care Team Providers Name Role Phone Pcp, Patient Does Not Have A Primary Care Provider Reason for Visit Reason Comments ROUTINE VISIT INJECTION CIPRIANO Encounter Details Date Type Department Care Team Description 11/30/2018 Routine [facility] Women's Liz Xavier, Supervision of high risk in second trimester (Primary Dx); Visit Healthcare- PA-C 25 weeks gestation of [address] [facility] [address] [place] [phone] Allergies Active Allergy Reactions Severity Noted Date [...] file Gets together: Not on file Attends rastafarian service: Not on file Active member of [...] Description 12/07/2018 Nurse Visit Obstetrics & Nurse, [facility] Women's Gynecology Health 12/20/2018 Nurse Visit Obstetrics & Nurse, [facility] Women's Gynecology Health 12/26/2018 Routine Obstetrics & Pulido, Gabriella Llamas MD Visit Gynecology [address] [place] [address] [place] [address] [phone] Name Type Priority Associated Diagnoses Order Schedule [...] Address Type Group Dates [facility] BCBS [facility] [id number] 2014-Pre [phone] [address]OX PPO/POS - OUT OF STATE sent [id number] [place] [address] [facility] xxxxxxxxx 2018-Prese Medicaid [facility] nt HEALTH PLAN - MANAGED MEDICAID documented as of this encounter
--- OUTSIDE RECORDS SUMMARY | 2019-03-15 13:32 | XMS REPORT | Summary of Care ---
:1985 Author Organization [facility] Address [address] [place] [address] Care Team Providers Name Role Phone Pcp, Patient Does Not Have A Primary Care Provider Reason for Visit Reason Comments ROUTINE VISIT INJECTION CIPRIANO Encounter Details Date Type Department Care Team Description 11/30/2018 Routine [facility] Women's Liz Xavier, Supervision of high risk in second trimester (Primary Dx); Visit Healthcare- PA-C 25 weeks gestation of [address] [facility] [address] [place] [phone] Allergies Active Allergy Reactions Severity Noted Date [...] file Gets together: Not on file Attends gnosticism service: Not on file Active member of [...] Description 12/07/2018 Nurse Visit Obstetrics & Nurse, [facility] Women's Gynecology Health 12/20/2018 Nurse Visit Obstetrics & Nurse, [facility] Women's Gynecology Health 12/26/2018 Routine Obstetrics & Pulido, Gabriella Llamas MD Visit Gynecology [address] [place] [address] [place] [address] [phone] Name Type Priority Associated Diagnoses Order Schedule [...] ID Effective Phone Address Type Group Dates [facility] BCBS [facility] [id number] 2014-Pre [phone] [address] BOX PPO/POS - OUT OF STATE sent [id number] [place] [address] [facility] xxxxxxxxx 2018-Prese Medicaid [facility] nt HEALTH PLAN - MANAGED MEDICAID documented as of this encounter
--- NOTE | 2019-03-15 14:09 | ER ---
Nurse's Notes [facility] Name: Norma Cantu Age: 34 yrs Sex: Female : 1985 Arrival Date: 03/15/2019 Time: 13:29 Bed 27 Private MD: Diagnosis: Rash and other nonspecific skin eruption Presentation: 03/15 13:45 Presenting complaint: Patient states: C section 2 weeks ago. Pt reports itching, ss blistering and tenderness to incision site x 1 week since they removed the steri strips. Transition of care: patient was not received from another setting of care. Onset of symptoms was March 08, 2019. Risk Assessment: Do you want to hurt yourself or someone else? Patient reports no desire to harm self or others. Initial Sepsis Screen: Does the patient meet any 2 criteria? No. Patient's initial sepsis screen is negative. Does the patient have a suspected source of infection? Yes: Skin breakdown/wound. Care prior to arrival: None. 13:45 Method Of Arrival: Ambulatory ss 13:45 Acuity: ARISTIDES 4 ss INFORMATION COORDINATOR: 14:42 LMP N/A - Recent ca1 Historical: - Allergies: 13:48 Aspirin; ss 13:48 NSAIDS; ss 13:48 PENICILLINS; ss 13:48 Latex, Natural Rubber; ss - PMHx: 13:48 None; ss - PSHx: 13:48 ; ss - Immunization history:: Adult Immunizations up to date. - Social history:: Smoking status: Patient/guardian denies using tobacco. - Ebola Screening: : Patient denies exposure to infectious person Patient denies travel to an Ebola-affected area in the 21 days before illness onset. Screenin:00 Abuse screen: Denies threats or abuse. Denies injuries from another. Nutritional ca1 screening: No deficits noted. Tuberculosis screening: No symptoms or risk factors identified. Fall Risk None identified. Assessment: 14:00 General: Appears in no apparent distress. comfortable, Behavior is calm, cooperative, ca1 appropriate for age. Pain: Denies pain. Neuro: Level of Consciousness is awake, alert, obeys commands, Oriented to person, place, time, situation, Appropriate for age. Cardiovascular: Heart tones S1 S2 present Capillary refill < 3 seconds Patient's skin is warm and dry. Respiratory: Airway is patent Respiratory effort is even, unlabored, Respiratory pattern is regular, symmetrical, Breath sounds are clear bilaterally. GI: Abdomen is round non-distended, Bowel sounds present X 4 quads. Abd is soft and non tender X 4 quads. : No deficits noted. No signs and/or symptoms were reported regarding the genitourinary system. EENT: No deficits noted. No signs and/or symptoms were reported regarding the EENT system. Derm: Skin is intact, is healthy with good turgor, Skin is pink, warm \T\ dry. Rash noted that is urticaria, on suprapubic area Surgical incision is dry and intact, no discharge, no redness, not tender to touch. Musculoskeletal: Circulation, motion, and sensation intact. Capillary refill < 3 seconds, Range of motion: intact in all extremities. 14:42 Reassessment: Patient appears in no apparent distress at this time. Patient is alert, ca1 oriented x 3, equal unlabored respirations, skin warm/dry/pink. Vital Signs: 13:48 BP 123 / 72; Pulse 90; Resp 15; Temp 98.4(TE); Pulse Ox 99% on R/A; Weight 78.02 kg; ss Height 5 ft. 4 in. (162.56 cm); Pain 0/10; 13:48 Body Mass Index 29.52 (78.02 kg, 162.56 cm) ED Course: 13:29 Patient arrived in ED. mr 13:47 Triage completed. ss 13:48 Arm band placed on right wrist. ss 13:49 [facility]C [facility]. la1 13:49 Earnest Hartmann MD is Attending Physician. la1 13:50 Sierra Weston, ALDAIR is Primary Nurse. ca1 14:00 Patient has correct armband on for positive identification. Placed in gown. Bed in low ca1 position. Call light in reach. Side rails up X 1. Pulse ox on. NIBP on. Warm blanket given. 14:00 No provider procedures requiring assistance completed. Patient did not have IV access ca1 during this emergency room visit. Administered Medications: 14:30 Drug: predniSONE 40 mg Route: PO; ca1 14:38 Follow up: Response: Medication administered at discharge. ca1 14:32 Drug: Benadryl 25 mg Route: PO; ca1 14:38 Follow up: Response: Medication administered at discharge. ca1 14:35 Drug: Pepcid 20 mg Route: PO; ca1 14:38 Follow up: Response: Medication administered at discharge. ca1 Outcome: 14:09 Discharge ordered by . la1 14:42 Discharged to home ambulatory, with family. ca1 14:42 Condition: stable 14:42 Discharge instructions given to patient, Instructed on discharge instructions, follow up and referral plans. medication usage, Demonstrated understanding of instructions, follow-up care, medications, Prescriptions given X 1. 14:42 Patient left the ED. ca1 Signatures: Beatrice Barney Shelby, RN RN ss Chau Andrade, SAP SECURITY ARCHITECT-C SAP SECURITY ARCHITECT-Cla1 Sierra Weston RN RN ca1 Corrections: (The following items were deleted from the chart) 14:41 14:00 Fall Risk ca1 ca1
--- NOTE | 2019-03-15 14:10 | EDPHYS ---
Physician Documentation [facility] Name: Norma Cantu Age: 34 yrs Sex: Female : 1985 Arrival Date: 03/15/2019 Time: 13:29 Bed 27 Private MD: ED Physician Earnest Hartmann HPI: 03/15 13:58 This 34 yrs old Female presents to ER via Ambulatory with complaints of C la1 section infected. 13:58 Patient presents to ED for recheck of: dermatitis . The affected area is on the la1 abdomen. Progress: The patient reports excellent improvement in the affected area. There has been resolution, improvement, or non-development of any drainage, fever, pain, redness or swelling. Pt had on the recently had the steri strips removed and began having itching and rash around the site. 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 - Social history:: Smoking status: Patient/guardian denies using tobacco. - Ebola Screening: : Patient denies exposure to infectious person Patient denies travel to an Ebola-affected area in the 21 days before illness onset. ROS: 13:59 Constitutional: Negative for fever, chills, and weight loss, Eyes: Negative for injury, la1 pain, redness, and discharge, ENT: Negative for injury, pain, and discharge, Neck: Negative for injury, pain, and swelling, Cardiovascular: Negative for chest pain, palpitations, and edema, Respiratory: Negative for shortness of breath, cough, wheezing, and pleuritic chest pain, Abdomen/GI: Negative for abdominal pain, nausea, vomiting, diarrhea, and constipation, Back: Negative for injury and pain, MS/Extremity: Negative for injury and deformity. 13:59 Skin: Positive for rash, of the abdomen. Exam: 14:00 Constitutional: This is a well developed, well nourished patient who is awake, alert, la1 and in no acute distress. Head/Face: Normocephalic, atraumatic. Eyes: Pupils equal round and reactive to light, extra-ocular motions intact.Periorbital areas with no swelling, redness, or edema. ENT: Mucous membranes moist. Neck: . No Meningismus. Chest/axilla: Normal chest wall appearance and motion. Nontender with no deformity. No lesions are appreciated. Cardiovascular: Regular rate and rhythm with a normal S1 and S2. No gallops, murmurs, or rubs. Normal PMI, no JVD. No pulse deficits. Respiratory: Lungs have equal breath sounds bilaterally, clear to auscultation. No rales, rhonchi or wheezes noted. No increased work of breathing, no retractions or nasal flaring. Abdomen/GI: Soft, non-tender, with normal bowel sounds. No distension or tympany. No guarding or rebound. No evidence of tenderness throughout. Back: No spinal tenderness. No costovertebral tenderness. Full range of motion. 14:00 Skin: rash a moderate rash is noted, rash can be described as raised, urticarial, vesicular, contact dermatitis, on the abdomen, site wound appears well healed, contact dermatitis like rash located around wound, pt reports it is itchy, denies fevers. Vital Signs: 13:48 BP 123 / 72; Pulse 90; Resp 15; Temp 98.4(TE); Pulse Ox 99% on R/A; Weight 78.02 kg; ss Height 5 ft. 4 in. (162.56 cm); Pain 0/10; 13:48 Body Mass Index 29.52 (78.02 kg, 162.56 cm) ss MDM: 13:49 Patient medically screened. la1 14:08 Data reviewed: vital signs, nurses notes, I have discussed the patient's la1 presentation/case with the attending Emergency Department Physician; and as a result, I will discharge patient. Data interpreted: Pulse oximetry: on room air is 99 %. Interpretation: normal. Counseling: I had a detailed discussion with the patient and/or guardian regarding: the historical points, exam findings, and any diagnostic results supporting the discharge/admit diagnosis, the need for outpatient follow up, a family practitioner, to return to the emergency department if symptoms worsen or persist or if there are any questions or concerns that arise at home. Special discussion: I discussed with the patient/guardian that the patient's current presentation does not indicate dosing of antibiotics. They should follow-up with their primary care provider and return if the symptoms persist or progress. Administered Medications: 14:30 Drug: predniSONE 40 mg Route: PO; ca1 14:38 Follow up: Response: Medication administered at discharge. ca1 14:32 Drug: Benadryl 25 mg Route: PO; ca1 14:38 Follow up: Response: Medication administered at discharge. ca1 14:35 Drug: Pepcid 20 mg Route: PO; ca1 14:38 Follow up: Response: Medication administered at discharge. ca1 Disposition: 03/15/19 14:09 Discharged to Home. Impression: Rash and other nonspecific skin eruption. - Condition is Stable. - Discharge Instructions: Contact Dermatitis, Allergies, [id number]. - Prescriptions for Medrol (Martín) 4 mg Oral Tablets, Dose Pack - take 1 tablet by ORAL route as directed - follow package instructions; 1 packet. - Medication Reconciliation Form, Thank You Letter form. - Follow up: Private Physician; When: 2 - 3 days; Reason: Recheck today's complaints, Re-evaluation by your physician. Follow up: Emergency Department; When: As needed. - Problem is new. - Symptoms are unchanged. Addendum: 03/18/2019 06:41 Co-signature as Attending Physician, Earnest Hartmann MD I agree with the assessment and k dr plan of care. Signatures: Earnest Hartmann MD MD [facility] Anette Salinas RN RN ss Chau Andrade, ANIMAL EVISCERATOR-C ANIMAL EVISCERATOR-Cla1 Sierra Weston RN RN ca1 Corrections: (The following items were deleted from the chart) 03/15 14:42 14:09 03/15/2019 14:09 Discharged to Home. Impression: Rash and other nonspecific skin ca1 eruption. Condition is Stable. Forms are Medication Reconciliation Form, Thank You Letter, Antibiotic Education, Prescription Opioid Use. Follow up: Private Physician; When: 2 - 3 days; Reason: Recheck today's complaints, Re-evaluation by your physician. Follow up: Emergency Department; When: As needed. Problem is new. Symptoms are unchanged. la1
[2019-03-15] MEDS ORDERED: DIPHENHYDRAMINE 25 MG TAB/CAP ONE (14:35)
[2019-03-15] MEDS ORDERED: predniSONE 20 MG TAB ONE (14:35)
[2019-03-15] MEDS ORDERED: FAMOTIDINE 20 MG TAB ONE (14:35)
[2019-03-15 15:15] VITALS: BP 123/72; TEMP 98.4; O2SAT 99
== END 2019-03-15 14:42 | disposition home or self-care (01) ==
LOC: ER 13:26
DX: R21 Rash and other nonspecific skin eruption (principal); Z88.0 Allergy status to penicillin; Z88.6 Allergy status to analgesic agent; Z91.040 Latex allergy status; Z91.048 Other nonmedicinal substance allergy status
CPT/HCPCS: 99283; J7512

== ENCOUNTER 2021-10-29 08:07 | Emergency (ER) | payer OTHER, BC ==
--- OUTSIDE RECORDS SUMMARY | 2021-10-29 08:15 | XMS REPORT | Continuity of Care Document ---
:[address] [facility] t Address [address] [place] [address] [address]. [address]. [address] [place] [address] Care Team Providers Name Role Phone Arie Maravilla Hemant Primary Care Physician King JESSICA MD, James C Attending Clinician Kerline Montero Attending Clinician KERLINE PASCAL Attending Clinician Unavailable Doctor Unassigned, [place] Attending Clinician Unavailable JANES BLACKWOOD Attending Clinician Unavailable KEVIN LEIVA Attending Clinician Unavailable Iza Gonzalez Attending Clinician IZA ALVARADO Attending Clinician Unavailable Ya Rodriguez RN Attending Clinician Unavailable Liz Xavier PA-C Attending Clinician Zoe Franklin RN Attending Clinician Unavailable Nurse, [facility] Attending Clinician Unavailable Gabriella Pulido MD Attending Clinician [address] [place] [address] Room Attending Clinician Unavailable Lee BARBOSA, Beatrice Palacio Attending Clinician Payers Payer Name Policy Type Policy Number Effective Date Expiration Date S ource Problems Condition Condition Condition Status Onset Resolution Last Treating Co mments Source Name Details Category Date Date Treatment Clinician Date 38 weeks 38 weeks Disease Active 2018-03 Unive rs gestation gestation 2-20 ity of of of 00:00: [place] 00 [place] [facility] 37 weeks 37 weeks Disease Active 2018-03 Unive rs gestation gestation 1-28 ity of of of 00:00: [place] 00 [facility] Obesity Obesity Disease Active 2018-03 Univers (BMI (BMI 1-19 ity of 30-39.9) 30-39.9) 00:00: [place] [facility] Disease Active 2018-03 Univers uterine uterine 1-19 ity of contractio [place]io [place] Medical third third Branch trimester, trimester, antepartum antepartum Tubal Tubal Disease Active 2018-03 Univers ligation ligation 0-12 ity of status status 00:00: [place] [facility] Gastroesop Gastroesop Disease Active 2018-03 U nivers hageal hageal 0-12 ity of reflux reflux 00:00: [place] disease, disease, 00 Medica l esophagiti esophagiti Br anch s presence s presence not not specified specified History of History of Disease Active U nivers depression depression 5-08 it y of 00:00: [place] [facility] History of History of Disease Active U nivers anxiety anxiety 5-08 ity of 00:00: [place] 00 Medical Branch History of History of Disease Active 2019 U nivers bipolar bipolar 5-08 ity of disorder disorder 00:00: [place] 00 Medical Branch History of History of Disease Active U nivers herpes herpes 5-08 ity of genitalis genitalis [place] Mild Mild Disease Active Univers intermitte intermitte 5-08 it y of nt asthma nt asthma 00:[place] without without 00 Medical complicati complicati Br anch on on Previous Previous Disease Active Unive rs 5-08 ity of section section 00:00: [place] 00 Medical Branch Family Family Disease Active 2019 Univers history of history of 5-08 it y of congenital congenital 00:[place] heart heart 00 Medical defect defect Branch History of History of Disease Active 2019 U nivers reversal reversal 5-08 ity of of tubal of tubal 00:00: [place] ligation ligation 00 Medica l Branch History of History of Disease Active 2019 U nivers 5-08 [place] of delivery, delivery, [place] [facility] Presence Presence Disease Active Unive rs of of 1-18 ity of intrauteri intrauteri 00:[place] 00 Medical contracept contracept Br anch kinza device kinza device Encounter Encounter Disease Active Uni vers for for 1-18 ity of removal of removal of 00:[place] intrauteri intrauteri 00 Me dical ne ne Branch contracept contracept kinza device kinza device (IUD) (IUD) Allergies, Adverse Reactions, Alerts Allergy Allergy Status Severity Reaction(s) Onset Inactive Treating Comm ents Source Name Type Date Date Clinician Latex Propensi Active Other - See 2018-03 Causes Uni vers ty to comments 217 irritatio ity o f adverse 00:00: n and [place] reaction 00 redness Medical s Branch LATEX DRUG Active Low Other-Cmnt 2018-03 Univer s INGREDI 217 ity of 00:00: [place] 00 Medical Branch Aspirin Propensi Active Shortness of 2017-03 U nivers ty to Breath 2-28 ity of adverse 00:00: [place] reaction 00 Medical s Branch Nsaids Propensi Active Shortness of 2017-03 Un gavin (Non-Paulo ty to Breath 2-28 ity of roidal adverse 00:00: [place] Anti-Inf reaction 00 Medica l lammator s Branch y Drug) Penicill Propensi Active Hives 2017-03 Univer s in ty to 2-28 ity of adverse 00:00: [place] reaction 00 Medical s Branch ASPIRIN DRUG Active SOB 2017-03 Univers INGREDI 2-28 ity of 00:00: [place] 00 Medical Branch NSAIDS Drug Active SOB 2017-03 Univers (NON-PAULO Class 2-28 ity of ROIDAL 00:00: [place] ANTI-INF 00 Medical LAMMATOR Branch Y DRUG) PENICILL DRUG Active Hives 2017-03 Univers IN INGREDI 2-28 ity of 00:00: [place] 00 Medical Branch Penicill Propensi Active Hives 2017-03 Univer s in ty to 2-28 ity of adverse 00:00: [place] reaction 00 Medical s Branch Social History Social Habit Start Date Stop Date Quantity Comments Source ASSERTION 2018-06-21 University of 00:00:00 [place] [facility] History [facility] University o f Alcohol Frequency [place] M edical Branch History [facility] University o f Alcohol Std [place] Medical Drinks Branch History [facility] University o f Alcohol Binge [place] Medic al Branch Exposure to Not sure University of SARS-CoV-2 [facility] (event) Branch Alcohol intake 2021-04-10 2021-04-10 Current drinker Unive rsity of 00:00:00 00:00:00 of alcohol [facility] (finding) Branch Tobacco use and 2018-03-09 2018-03-09 Never used Universit y of exposure 00:00:00 00:00:00 [facility] Alcohol Comment 2018-03-09 2018-03-09 rare Universit y of 00:00:00 00:00:00 [facility] [birth year] Universit y of 00:00:00 00:00:00 [facility] Smoking Status Start Date Stop Date Source Never smoker [facility] Medications Ordered Filled Start Stop Current Ordering Indication Dosage Frequency Signature Comments Components Source Medication Medication Date Date Medication? Clinician (SIG) Name Name neomycin-po 2020-03 Yes [id number] 3[drp] Place 3 Univers lymyxin-hyd 1-05 Drops in ity of rocortisone 00:00: [place] ears [place] otic 00 4 (four) Medical solution times Branch daily. neomycin-po 2020-03 Yes [id number] 3[drp] Place 3 Univers lymyxin-hyd 1-05 Drops in ity of rocortisone 00:00: [place] otic 00 4 (four) Medical solution times Branch daily. neomycin-po 2020-03 Yes [id number] 3[drp] Place 3 Univers lymyxin-hyd 1-05 Drops in ity of rocortisone 00:00: [place] otic 00 4 (four) Medical solution times Branch daily. doxycycline 2020-03- No [id number] 100mg Take 1 Univers hyclate 100 03-17 tablet by it y of mg tablet 00:00: 05:59 mouth 2 [place] :[place] (two) Medical times Branch daily for 7 days. traMADoL 50 2020-03- No [id number] 50mg Take 1 Uni vers mg tablet 03-17 tablet by ity of 00:00: 05:59 mouth [place] 00 :00 every 8 Medical (eight) Branch hours as needed for Pain (scale 4-6) for up to 7 days. Indication s: acute pain acyclovir 2020-03 Yes Univers 400 mg 0-22 ity of tablet 00:00: [place] [facility] acyclovir 2020-03 Yes Univers 400 mg 0-22 ity of tablet 00:00: Medical Branch acyclovir 2020-03 Yes Univers 400 mg 0-22 ity of tablet 00:00: [place] [facility] doxycycline 2020- No [id number] 100mg Take 1 Univers hyclate 100 11-30 10 tablet by it y of mg tablet 00:00: 04:59 [place] 2 [place] :00 (two) Medical times Branch daily for 10 days. ciprofloxac 2020- No [id number] 2[drp] Place 2 Univers in-dexameth 11-30 Drops in ity of asone 00:00: 04:59 left ear 2 [place] 0.3-0.1 % 00 :00 (two) Medical otic drops times [place] daily for 7 days. buPROPion Yes Univers XL 300 mg 9-13 ity of 24 hr 00:00: [place] tablet Medical Branch buPROPion Yes Univers XL 300 mg 9-13 ity of 24 hr 00:00: [place] tablet Medical Branch buPROPion Yes Univers XL 300 mg 9-13 ity of 24 hr 00:00: [place] tablet Medical Branch buPROPion Yes Univers XL 300 mg 9-13 ity of 24 hr 00:00: [place] tablet 00 Medical Branch doxepin 100 0 Yes Univer s mg capsule 9-10 ity of 00:00: Medical Branch doxepin 100 2020-0 Yes Univer s mg capsule 9-10 ity of 00:00: [place] [facility] doxepin 100 2020-0 Yes Univer s mg capsule 9-10 ity of 00:00: [place] [facility] doxepin 100 2020-0 Yes Univer s mg capsule 9-10 ity of 00:00: [place] 00 Medical Branch Butalbital- 2020-0 Yes Univer s Acetaminoph 8-21 ity of en-Caff 00:00: [place] 50-300-40 00 Medical mg per Branch capsule Butalbital- 2020-0 Yes Univer s Acetaminoph 8-21 ity of en-Caff 00:00: [place] 50-300-40 00 Medical mg per Branch capsule Butalbital- 2020-0 Yes Univer s Acetaminoph 8-21 ity of en-Caff 00:00: [place] [address]-40 00 Medical mg per Branch capsule clonazePAM 2020-0 Yes Univers 1 mg tablet 8-17 ity of 00:00: [place] [facility] clonazePAM 1-0 Yes Univers 1 mg tablet 8-17 ity of 00:00: [place] [facility] neomycin-po 2020-0 Yes Univer s lymyxin-hyd 8-17 ity of rocortisone 00:00: [place] 3.5-10,000- 00 Medical 1 Branch mg/mL-unit/ mL-% otic susp clonazePAM 2020-0 Yes Univers 1 mg tablet 8-17 ity of 00:00: [place] [address] Medical Branch neomycin-po 2020-0 Yes Univer s lymyxin-hyd 8-17 ity of rocortisone 00:00: [place] 3.5-10,000- 00 Medical 1 Branch mg/mL-unit/ mL-% otic susp clonazePAM 2020-0 Yes Univers 1 mg tablet 8-17 ity of 00:00: [place] [address] Medical Branch neomycin-po 2020-0 Yes Univer s lymyxin-hyd 8-17 ity of rocortisone 00:00: [place] 3.5-10,000- 00 Medical 1 Branch mg/mL-unit/ mL-% otic susp methylPREDN 2020-0 Yes [place] ISolone 4 8-13 ity of mg tablets 00:00: [place] [facility] methylPREDN 1-0 Yes Univer s ISolone 4 8-13 ity of mg tablets 00:00: [place] [address] Medical Branch methylPREDN 1-0 Yes Univer s ISolone 4 8-13 ity of mg tablets 00:00: [place] [address] Medical Branch venlafaxine 2020-0 Yes Univer s XR 75 mg 24 7-29 ity of hr capsule 00:00: [place] [address] Medical Branch venlafaxine 2020-0 Yes Univer s XR 75 mg 24 7-29 ity of hr capsule 00:00: [place] [address] Medical Branch venlafaxine 2020-0 Yes Univer s XR 75 mg 24 7-29 ity of hr capsule 00:00: [place] [address] Medical Branch venlafaxine Yes Univer s XR 75 mg 24 7-29 ity of hr capsule 00:00: [place] 00 Medical Branch acyclovir 2020- No 400mg Take 1 Univ ers 400 mg 05-08- tablet by ity of tablet 00:00: 05:59 mouth 3 [place] 00 :00 (three) Medical times Branch daily for 5 days. acyclovir Yes TK 1 T PO Uni vers 400 mg 03-14 TID ity of tablet 00:00: [place] 00 Medical Branch acyclovir 2020- No TK 1 T PO Un gavin 400 mg 03-14 TID ity of tablet 00:00: 00:00 [place] 00 :00 Medical Branch simethicone 2018-03 Yes [id number] 160mg Take 2 Univers 80 mg 2-21 tablets by ity of chewable 00:00: mouth [place] tablet 00 after Medical meals and Branch at bedtime as needed for Gas. 2018-03 Yes [id number] 1{tbl} Take 1 Univers vitamin 2-21 tablet by ity of w/FA tablet 00:00: mouth [place] 00 daily. Medical Branch docusate 2018-03 Yes [id number] 240mg Take 1 U nivers calcium 240 2-21 capsule by it y of mg capsule 00:00: mouth [place] 00 daily as Medical needed for Branch Constipati on. ferrous 2018-03 Yes [id number] 325mg Take 1 Un gavin sulfate 325 2-21 tablet by ity of mg (65 mg 00:00: mouth 2 [place] iron) 00 (two) Medical tablet times Branch daily. HYDROcodone 2018-03 Yes [id number] 1{tbl} Take 1 Univers -acetaminop 2-21 tablet by ity of hen 5-325 00:00: mouth [place] mg tablet 00 every 6 Medical (six) Branch hours as needed for Pain (scale 4-6). simethicone 2018-03 Yes [id number] 160mg Take 2 Univers 80 mg 2-21 tablets by ity of chewable 00:00: mouth [place] tablet 00 after Medical meals and Branch at bedtime as needed for Gas. 2018-03 Yes [id number] 1{tbl} Take 1 Univers vitamin 2-21 tablet by ity of w/FA tablet 00:00: mouth [place] 00 daily. Medical Branch docusate 2018-03 Yes [id number] 240mg Take 1 U nivers calcium 240 2-21 capsule by it y of mg capsule 00:00: mouth once [place] 00 daily as Medical needed for Branch Constipati on. ferrous 2018-03 Yes [id number] 325mg Take 1 Un gavin sulfate 325 2-21 tablet by ity of mg (65 mg 00:00: mouth 2 [place] iron) 00 (two) Medical tablet times Branch daily. HYDROcodone 2018-03 Yes [id number] 1{tbl} Take 1 Univers -acetaminop 2-21 tablet by ity of hen 5-325 00:00: mouth [place] mg tablet 00 every 6 Medical (six) Branch hours as needed for Pain (scale 4-6). simethicone 2018-03 Yes [id number] 160mg Take 2 Univers 80 mg 2-21 tablets by ity of chewable 00:00: mouth [place] tablet 00 after Medical meals and Branch at bedtime as needed for Gas. 2018-03 Yes [id number] 1{tbl} Take 1 Univers vitamin 2-21 tablet by ity of w/FA tablet 00:00: mouth [place] 00 daily. Medical Branch docusate 2018-03 Yes [id number] 240mg Take 1 U nivers calcium 240 2-21 capsule by it y of mg capsule 00:00: mouth once [place] 00 daily as Medical needed for Branch Constipati on. ferrous 2018-03 Yes [id number] 325mg Take 1 Un gavin sulfate 325 2-21 tablet by ity of mg (65 mg 00:00: mouth 2 [place] iron) 00 (two) Medical tablet times Branch daily. HYDROcodone 2018-03 Yes [id number] 1{tbl} Take 1 Univers -acetaminop 2-21 tablet by ity of hen 5-325 00:00: mouth [place] mg tablet 00 every 6 Medical (six) Branch hours as needed for Pain (scale 4-6). simethicone 2018-03 Yes [id number] 160mg Take 2 Univers 80 mg 2-21 tablets by ity of chewable 00:00: mouth [place] tablet 00 after Medical meals and Branch at bedtime as needed for Gas. 2018-03 Yes [id number] 1{tbl} Take 1 Univers vitamin 2-21 tablet by ity of w/FA tablet 00:00: mouth [place] 00 daily. Medical Branch docusate 2018-03 Yes [id number] 240mg Take 1 U nivers calcium 240 2-21 capsule by it y of mg capsule 00:00: mouth once [place] 00 daily as Medical needed for Branch Constipati on. ferrous 2018-03 Yes [id number] 325mg Take 1 Un gavin sulfate 325 2-21 tablet by ity of mg (65 mg 00:00: mouth 2 [place] iron) 00 (two) Medical tablet times Branch daily. HYDROcodone 2018-03 Yes [id number] 1{tbl} Take 1 Univers -acetaminop 2-21 tablet by ity of hen 5-325 00:00: mouth [place] mg tablet 00 every 6 Medical (six) Branch hours as needed for Pain (scale 4-6). simethicone 2018-03 Yes [id number] 160mg Take 2 Univers 80 mg 2-21 tablets by ity of chewable 00:00: mouth [place] tablet 00 after Medical meals and Branch at bedtime as needed for Gas. 2018-03 Yes [id number] 1{tbl} Take 1 Univers vitamin 2-21 tablet by ity of w/FA tablet 00:00: mouth [place] 00 daily. Medical Branch docusate 2018-03 Yes [id number] 240mg Take 1 U nivers calcium 240 2-21 capsule by it y of mg capsule 00:00: mouth once [place] 00 daily as Medical needed for Branch Constipati on. ferrous 2018-03 Yes [id number] 325mg Take 1 Un gavin sulfate 325 2-21 tablet by ity of mg (65 mg 00:00: mouth 2 [place] iron) 00 (two) Medical tablet times Branch daily. HYDROcodone 2018-03 Yes [id number] 1{tbl} Take 1 Univers -acetaminop 2-21 tablet by ity of hen 5-325 00:00: mouth [place] mg tablet 00 every 6 Medical (six) Branch hours as needed for Pain (scale 4-6). simethicone 2018-03 Yes [id number] 160mg Take 2 Univers 80 mg 2-21 tablets by ity of chewable 00:00: mouth [place] tablet 00 after Medical meals and Branch at bedtime as needed for Gas. 2018-03 Yes [id number] 1{tbl} Take 1 Univers vitamin 2-21 tablet by ity of w/FA tablet 00:00: mouth [place] 00 daily. Medical Branch docusate 2018-03 Yes [id number] 240mg Take 1 U nivers calcium 240 2-21 capsule by it y of mg capsule 00:00: mouth once [place] 00 daily as Medical needed for Branch Constipati on. ferrous 2018-03 Yes [id number] 325mg Take 1 Un gavin sulfate 325 2-21 tablet by ity of mg (65 mg 00:00: mouth 2 [place] iron) 00 (two) Medical tablet times Branch daily. HYDROcodone 2018-03 Yes [id number] 1{tbl} Take 1 Univers -acetaminop 2-21 tablet by ity of hen 5-325 00:00: mouth [place] mg tablet 00 every 6 Medical (six) Branch hours as needed for Pain (scale 4-6). simethicone 2018-03 Yes [id number] 160mg Take 2 Univers 80 mg 2-21 tablets by ity of chewable 00:00: mouth [place] tablet 00 after Medical meals and Branch at bedtime as needed for Gas. 2018-03 Yes [id number] 1{tbl} Take 1 Univers vitamin 2-21 tablet by ity of w/FA tablet 00:00: mouth [place] 00 daily. Medical Branch docusate 2018-03 Yes [id number] 240mg Take 1 U nivers calcium 240 2-21 capsule by it y of mg capsule 00:00: mouth once [place] 00 daily as Medical needed for Branch Constipati on. ferrous 2018-03 Yes [id number] 325mg Take 1 Un gavin sulfate 325 2-21 tablet by ity of mg (65 mg 00:00: mouth 2 [place] iron) 00 (two) Medical tablet times Branch daily. HYDROcodone 2018-03 Yes [id number] 1{tbl} Take 1 Univers -acetaminop 2-21 tablet by ity of hen 5-325 00:00: mouth [place] mg tablet 00 every 6 Medical (six) Branch hours as needed for Pain (scale 4-6). simethicone 2018-03 Yes [id number] 160mg Take 2 Univers 80 mg 2-21 tablets by ity of chewable 00:00: mouth [place] tablet 00 after Medical meals and Branch at bedtime as needed for Gas. 2018-03 Yes [id number] 1{tbl} Take 1 Univers vitamin 2-21 tablet by ity of w/FA tablet 00:00: mouth [place] 00 daily. Medical Branch docusate 2018-03 Yes [id number] 240mg Take 1 U nivers calcium 240 2-21 capsule by it y of mg capsule 00:00: mouth once [place] 00 daily as Medical needed for Branch Constipati on. ferrous 2018-03 Yes [id number] 325mg Take 1 Un gavin sulfate 325 2-21 tablet by ity of mg (65 mg 00:00: mouth 2 [place] iron) 00 (two) Medical tablet times Branch daily. HYDROcodone 2018-03 Yes [id number] 1{tbl} Take 1 Univers -acetaminop 2-21 tablet by ity of hen 5-325 00:00: mouth [place] mg tablet 00 every 6 Medical (six) Branch hours as needed for Pain (scale 4-6). simethicone 2018-03 Yes [id number] 160mg Take 2 Univers 80 mg 2-21 tablets by ity of chewable 00:00: mouth [place] tablet 00 after Medical meals and Branch at bedtime as needed for Gas. 2018-03 Yes [id number] 1{tbl} Take 1 Univers vitamin 2-21 tablet by ity of w/FA tablet 00:00: mouth [place] 00 daily. Medical Branch docusate 2018-03 Yes [id number] 240mg Take 1 U nivers calcium 240 2-21 capsule by it y of mg capsule 00:00: mouth once [place] 00 daily as Medical needed for Branch Constipati on. ferrous 2018-03 Yes [id number] 325mg Take 1 Un gavin sulfate 325 2-21 tablet by ity of mg (65 mg 00:00: mouth 2 [place] iron) 00 (two) Medical tablet times Branch daily. HYDROcodone 2018-03 Yes [id number] 1{tbl} Take 1 Univers -acetaminop 2-21 tablet by ity of hen 5-325 00:00: mouth [place] mg tablet 00 every 6 Medical (six) Branch hours as needed for Pain (scale 4-6). metroNIDAZO 2018-03 Yes Univer s LE 500 mg 1-20 ity of tablet 00:00: [place] 00 Medical Branch metroNIDAZO 2018-03 Yes Univer s LE 500 mg 1-20 ity of tablet 00:00: [place] 00 Medical Branch metroNIDAZO 2018-03 Yes Univer s LE 500 mg 1-20 ity of tablet 00:00: 00 Medical Branch metroNIDAZO 2018- Yes Univer s LE 500 mg 1-20 ity of tablet 00:00: Medical Branch metroNIDAZO 2018- Yes Univer s LE 500 mg 1-20 ity of tablet 00:00: Medical Branch metroNIDAZO 2018-03 Yes Univer s LE 500 mg 1-20 ity of tablet 00:00: Medical Branch metroNIDAZO 2018- Yes Univer s LE 500 mg 1-20 ity of tablet 00:00: Medical Branch FAMOTIDINE 2018- Yes TAKE ONE Uni vers 20 mg 1-18 TABLET BY ity of tablet 00:00: [facility] TWICE A Medical DAY Branch FAMOTIDINE 2018-03 Yes TAKE ONE Uni vers 20 mg 1-18 TABLET BY ity of tablet 00:00: TWICE A Medical DAY Branch FAMOTIDINE 2018-03 Yes TAKE ONE Uni vers 20 mg 1-18 TABLET BY ity of tablet 00:00: [facility] TWICE A Medical DAY Branch FAMOTIDINE 2018- Yes TAKE ONE Uni vers 20 mg 1-18 TABLET BY ity of tablet 00:00: TWICE A Medical DAY Branch FAMOTIDINE 2018- Yes TAKE ONE Uni vers 20 mg 1-18 TABLET BY ity of tablet 00:00: [facility] TWICE A Medical DAY Branch FAMOTIDINE 2018- Yes TAKE ONE Uni vers 20 mg 1-18 TABLET BY ity of tablet 00:00: [facility] TWICE A Medical DAY Branch FAMOTIDINE 2018- Yes TAKE ONE Uni vers 20 mg 1-18 TABLET BY ity of tablet 00:00: [facility] TWICE A Medical DAY Branch FAMOTIDINE 2018- Yes TAKE ONE Uni vers 20 mg 1-18 TABLET BY ity of tablet 00:00: TWICE A Medical DAY Branch FAMOTIDINE 2018- Yes TAKE ONE Uni vers 20 mg 1-18 TABLET BY ity of tablet 00:00: [facility] TWICE A Medical DAY Branch famotidine 2019-0 Yes 20mg Take 1 Unive rs 20 mg 9-20 tablet by ity of tablet 00:00: mouth (two) Medical times Branch daily. famotidine 2019-0 Yes 20mg Take 1 Unive rs 20 mg 9-20 tablet by ity of tablet 00:00: mouth (two) Medical times Branch daily. famotidine 0 Yes 20mg Take 1 Unive rs 20 mg 9-20 tablet by ity of tablet 00:00: mouth 2 00 (two) Medical times Branch daily. famotidine 0 Yes 20mg Take 1 Unive rs 20 mg 9-20 tablet by ity of tablet 00:00: mouth 2 00 (two) Medical times Branch daily. famotidine Yes 20mg Take 1 Unive rs (PEPCID) 20 9-09 tablet by ity of mg tablet 00:00: mouth [place] 00 daily. Medical Branch famotidine Yes 20mg Take 1 Unive rs (PEPCID) 20 9-09 tablet by ity of mg tablet 00:00: mouth [place] 00 daily. Medical Branch famotidine Yes 20mg Take 1 Unive rs (PEPCID) 20 9-09 tablet by ity of mg tablet 00:00: mouth [place] 00 daily. Medical Branch famotidine Yes 20mg Take 1 Unive rs (PEPCID) 20 9-09 tablet by ity of mg tablet 00:00: mouth [place] 00 daily. Medical Branch famotidine Yes 20mg Take 1 Unive rs (PEPCID) 20 9-09 tablet by ity of mg tablet 00:00: mouth [place] 00 daily. Medical Branch famotidine Yes 20mg Take 1 Unive rs (PEPCID) 20 9-09 tablet by ity of mg tablet 00:00: mouth [place] 00 daily. Medical Branch famotidine Yes 20mg Take 1 Unive rs (PEPCID) 20 9-09 tablet by ity of mg tablet 00:00: mouth [place] 00 daily. Medical Branch famotidine Yes 20mg Take 1 Unive rs (PEPCID) 20 9-09 tablet by ity of mg tablet 00:00: mouth [place] 00 daily. Medical Branch fexofenadin Yes Take by Uni vers e HCl 11-15 mouth. ity of (MALIKA 13:43: [place] ORAL) 04 Medical Branch doxylamine Yes Take by Univ ers (UNISOM, 11-15 mouth. ity of DOXYLAMINE, 13:43: [place] ) 25 mg 04 Medical tablet Branch fexofenadin 2019-0 Yes Take by Uni vers e HCl 9-05 mouth. ity of (MALIKA 13:43: [place] ORAL) 04 Medical Branch doxylamine 2018-0 Yes Take by Univ ers (UNISOM, 9-05 mouth. ity of DOXYLAMINE, 13:43: [place] ) 25 mg 04 Medical tablet Branch fexofenadin 2018-0 Yes Take by Uni vers e HCl 9-05 mouth. ity of (MALIKA 13:43: [place] ORAL) 04 Medical Branch doxylamine Yes Take by Univ ers (UNISOM, 9-05 mouth. ity of DOXYLAMINE, 13:43: [place] ) 25 mg 04 Medical tablet Branch fexofenadin Yes Take by Uni vers e HCl 9-05 mouth. ity of (MALIKA 13:43: [place] ORAL) 04 Medical Branch doxylamine Yes Take by Univ ers (UNISOM, 9-05 mouth. ity of DOXYLAMINE, 13:43: [place] ) 25 mg 04 Medical tablet Branch fexofenadin Yes Take by Uni vers e HCl 9-05 mouth. ity of (MALIKA 13:43: [place] ORAL) 04 Medical Branch doxylamine Yes Take by Univ ers (UNISOM, 9-05 mouth. ity of DOXYLAMINE, 13:43: [place] ) 25 mg 04 Medical tablet Branch fexofenadin 2018- Yes Take by Uni vers e HCl 9-05 mouth. ity of (MALIKA 13:43: [place] ORAL) 04 Medical Branch doxylamine 2018- Yes Take by Univ ers (UNISOM, 9-05 mouth. ity of DOXYLAMINE, 13:43: [place] ) 25 mg 04 Medical tablet Branch fexofenadin Yes Take by Uni vers e HCl 9-05 mouth. ity of (MALIKA 13:43: [place] ORAL) 04 Medical Branch doxylamine 2018-0 Yes Take by Univ ers (UNISOM, 9-05 mouth. ity of DOXYLAMINE, 13:43: [place] ) 25 mg 04 Medical tablet Branch fexofenadin 2018- Yes Take by Uni vers e HCl 9-05 mouth. ity of (MALIKA 13:43: [place] ORAL) 04 Medical Branch doxylamine Yes Take by Univ ers (UNISOM, 9-05 mouth. ity of DOXYLAMINE, 13:43: [place] ) 25 mg 04 Medical tablet Branch fexofenadin 2018-0 Yes Take by Uni vers e HCl 9-05 mouth. ity of (MALIKA 13:43: [place] ORAL) 04 Medical Branch doxylamine 2018-0 Yes Take by Univ ers (UNISOM, 9-05 mouth. ity of DOXYLAMINE, 13:43: [place] ) 25 mg 04 Medical tablet Branch fexofenadin 0 Yes Take by Uni vers e HCl 9-05 mouth. ity of (MALIKA 13:43: [place] ORAL) 04 Medical Branch doxylamine 0 Yes Take by Univ ers (UNISOM, 9-05 mouth. ity of DOXYLAMINE, 13:43: [place] ) 25 mg 04 Medical tablet Branch ACYCLOVIR 2019- No Take by Univ ers ORAL 9-05 09-05 mouth. ity of 13:43: 00:00 [place] 04 :00 Medical Branch hydroxyprog 2018- 2019- No 275mg [facility] ers esterone(PF 8-30 12-13 ity of ) (CIPRIANO 14:00: 14:59 [place] AUTO-INJECT 00 :00 Medical OR) 275 Branch mg/1.1 mL injection 275 mg hydroxyprog 2018- 2019- No 275mg [facility] ers esterone(PF 8-30 12-13 ity of ) (CIPRIANO 14:00: 14:59 [place] AUTO-INJECT 00 :00 Medical OR) 275 Branch mg/1.1 mL injection 275 mg hydroxyprog 2018- 2019- No 275mg [facility] ers esterone(PF 8-30 12-13 ity of ) (CIPRIANO 14:00: 14:59 [place] AUTO-INJECT 00 :00 Medical OR) 275 Branch mg/1.1 mL injection 275 mg hydroxyprog 2018-0 2019- No 275mg [facility] ers esterone(PF 8-30 12-13 ity of ) (CIPRIANO 14:00: 14:59 [place] AUTO-INJECT 00 :00 Medical OR) 275 Branch mg/1.1 mL injection 275 mg hydroxyprog 2018- 2019- No 275mg [facility] ers esterone(PF 8-30 12-13 ity of ) (CIPRIANO 14:00: 14:59 [place] AUTO-INJECT 00 :00 Medical OR) 275 Branch mg/1.1 mL injection 275 mg hydroxyprog 2019- 2019- No 275mg Univ ers esterone(PF 8 12-13 ity of ) (CIPRIANO 14:00: 14:59 [place] AUTO-INJECT 00 :00 Medical OR) 275 Branch mg/1.1 mL injection 275 mg hydroxyprog 2018- 2019- No 275mg Univ ers esterone(PF 8-30 12- ity of ) (CIPRIANO 14:00: 14:59 [place] AUTO-INJECT 00 :00 Medical OR) 275 Branch mg/1.1 mL injection 275 mg hydroxyprog 2018- 2019- No 275mg Univ ers esterone(PF 8- ity of ) (CIPRIANO 14:00: 14:59 [place] AUTO-INJECT 00 :00 Medical OR) 275 Branch mg/1.1 mL injection 275 mg hydroxyprog 2018- No 275mg 275 mg, U nivers esterone(PF 11-09 Subcutaneo i ty of ) (CIPRIANO 14:00: 14:59 us, [place] AUTO-INJECT 00 :00 QWEEKLY, Medi kin OR) 275 15 doses, Branch mg/1.1 mL First dose injection on Mon 275 mg 11/09/18 at 0900, Last dose on Mon02/15/19 at 0900, Routine hydroxyprog 2018- No 275mg Univ ers esterone(PF 11-09 ity of ) (CIPRIANO 14:00: 14:59 [place] AUTO-INJECT 00 :00 Medical OR) 275 Branch mg/1.1 mL injection 275 mg hydroxyprog 2018- No 275mg 275 mg, U nivers esterone(PF 11-09 Subcutaneo i ty of ) (CIPRIANO 14:00: 14:59 us, [place] AUTO-INJECT 00 :00 QWEEKLY, Medi kin OR) 275 15 doses, Branch mg/1.1 mL First dose injection on Mon 275 mg 11/09/18 at 0900, Last dose on Mon02/15/19 at 0900, Routine hydroxyprog 2018- 2019- No 275mg [facility] ers esterone(PF 8 12 ity of ) (CIPRIANO 14:00: 14:59 [place] AUTO-INJECT 00 :00 Medical OR) 275 Branch mg/1.1 mL injection 275 mg hydroxyprog 2018-0 2019- No 275mg 275 mg, U nivers esterone(PF 11-09 Subcutaneo i ty of ) (CIPRIANO 14:00: 14:59 us, [place] AUTO-INJECT 00 :00 QWEEKLY, [place] OR) 275 15 doses, Branch mg/1.1 mL First dose injection on Mon 275 mg 11/09/18 at 0900, Last dose on Mon02/15/19 at 0900, Routine hydroxyprog 2019-0 2019- No 275mg Univ ers esterone(PF 11-09 ity of ) (CIPRIANO 14:00: 14:59 [place] AUTO-INJECT 00 :00 Medical OR) 275 Branch mg/1.1 mL injection 275 mg hydroxyprog 2018- 2019- No 275mg 275 mg, U nivers esterone(PF 11-09 Subcutaneo i ty of ) (CIPRIANO 14:00: 14:59 us, [place] AUTO-INJECT 00 :00 QWEEKLY, [place] OR) 275 15 doses, Branch mg/1.1 mL First dose injection on Mon 275 mg 11/09/18 at 0900, Last dose on Mon02/15/19 at 0900, Routine hydroxyprog 2018-0 2019- No 275mg Univ ers esterone(PF 11-09 ity of ) (CIPRIANO 14:00: 14:59 [place] AUTO-INJECT 00 :00 Medical OR) 275 Branch mg/1.1 mL injection 275 mg hydroxyprog 2018-0 2019- No 275mg 275 mg, U nivers esterone(PF 11-09 Subcutaneo i ty of ) (CIPRIANO 14:00: 14:59 us, [place] AUTO-INJECT 00 :00 QWEEKLY, [place] OR) 275 15 doses, Branch mg/1.1 mL First dose injection on Mon 275 mg 11/09/18 at 0900, Last dose on Mon02/15/19 at 0900, Routine hydroxyprog 2019-0 Yes 275mg inject 1.1 [facility] esterone,PF 7-23 mL under ity of , 275 00:00: the skin [place] mg/1.1 mL 00 weekly. Medical injection Branch hydroxyprog 2019-0 Yes 275mg inject 1.1 Univers esterone,PF 7-23 mL under ity of , 275 00:00: the skin [place] mg/1.1 mL 00 weekly. Medical injection Branch hydroxyprog 2019-0 Yes 275mg inject 1.1 Univers esterone,PF 7-23 mL under ity of , 275 00:00: the skin [place] mg/1.1 mL 00 weekly. Medical injection Branch hydroxyprog 2019-0 Yes 275mg inject 1.1 Univers esterone,PF 7-23 mL under ity of , 275 00:00: the skin [place] mg/1.1 mL 00 weekly. Medical injection Branch hydroxyprog 2019-0 Yes 275mg inject 1.1 Univers esterone,PF 7-23 mL under ity of , 275 00:00: the skin [place] mg/1.1 mL 00 weekly. Medical injection Branch hydroxyprog 2019-0 Yes 275mg inject 1.1 Univers esterone,PF 7-23 mL under ity of , 275 00:00: the skin [place] mg/1.1 mL 00 weekly. Medical injection Branch hydroxyprog 2019-0 Yes 275mg inject 1.1 [facility] esterone,PF 7-23 mL under ity of , 275 00:00: the skin [place] mg/1.1 mL 00 weekly. Medical injection Branch hydroxyprog 2019-0 Yes 275mg inject 1.1 [facility] esterone,PF 7-23 mL under ity of , 275 00:00: the skin [place] mg/1.1 mL 00 weekly. Medical injection Branch hydroxyprog 2019-0 Yes 275mg inject 1.1 [facility] esterone,PF 7-23 mL under ity of , 275 00:00: the skin [place] mg/1.1 mL 00 weekly. Medical injection Branch hydroxyprog 2019-0 Yes 275mg inject 1.1 [facility] esterone,PF 7-23 mL under ity of , 275 00:00: the skin [place] mg/1.1 mL 00 weekly. Medical injection Branch hydroxyprog 2019-0 Yes 275mg inject 1.1 [facility] esterone,PF 7-23 mL under ity of , 275 00:00: the skin [place] mg/1.1 mL 00 weekly. Medical injection Branch hydroxyprog 2019-0 Yes 275mg inject 1.1 [facility] esterone,PF 7-23 mL under ity of , 275 00:00: the skin [place] mg/1.1 mL 00 weekly. Medical injection Branch hydroxyprog 2019-0 2019- No 275mg inject 1.1 [facility] esterone,PF 7-23 08-29 mL under ity of , 275 00:00: 00:00 the skin [place] mg/1.1 mL 00 :00 weekly. [facility] injection [place] hydroxyprog 2019-0 2019- No 275mg inject 1.1 Univers esterone,PF 7-23 08-29 mL under ity of , 275 00:00: 00:00 the skin [place] mg/1.1 mL 00 :00 weekly. [facility] injection [place] montelukast 2019-0 Yes [id number] 10mg Take 1 Univers 10 mg 7-22 tablet by ity of tablet 00:00: mouth [place] 00 daily. [facility] 2019-0 Yes [id number] 10mg Take 1 Univers 10 mg 7-22 tablet by ity of tablet 00:00: mouth [place] 00 daily. [facility] 2019-0 Yes [id number] 10mg Take 1 Univers 10 mg 7-22 tablet by ity of tablet 00:00: mouth [place] 00 daily. [facility] 2019-0 Yes [id number] 10mg Take 1 Univers 10 mg 7-22 tablet by ity of tablet 00:00: mouth [place] 00 daily. [facility] 2019-0 Yes [id number] 10mg Take 1 Univers 10 mg 7-22 tablet by ity of tablet 00:00: mouth [place] 00 daily. [facility] 2019-0 Yes [id number] 10mg Take 1 Univers 10 mg 7-22 tablet by ity of tablet 00:00: mouth [place] 00 daily. [facility] 2019-0 Yes [id number] 10mg Take 1 Univers 10 mg 7-22 tablet by ity of tablet 00:00: mouth [place] 00 daily. [facility] 2019-0 Yes [id number] 10mg Take 1 Univers 10 mg 7-22 tablet by ity of tablet 00:00: mouth [place] 00 daily. [facility] 2019-0 Yes [id number] 10mg Take 1 Univers 10 mg 7-22 tablet by ity of tablet 00:00: mouth [place] 00 daily. [facility] 2019-0 Yes [id number] 10mg Take 1 Univers 10 mg 7-22 tablet by ity of tablet 00:00: mouth [place] 00 daily. [facility] 2019-0 Yes [id number] 10mg Take 1 Univers 10 mg 7-22 tablet by ity of tablet 00:00: mouth [place] 00 daily. [facility] 2019-0 Yes [id number] 10mg Take 1 Univers 10 mg 7-22 tablet by ity of tablet 00:00: mouth [place] 00 daily. [facility] 2019-0 Yes [id number] 10mg Take 1 Univers 10 mg 7-22 tablet by ity of tablet 00:00: mouth [place] 00 daily. [facility] 2018-0 Yes [id number] 10mg Take 1 Univers 10 mg 7-22 tablet by ity of tablet 00:00: mouth [place] 00 daily. [facility] 2018-0 Yes [id number] 10mg Take 1 Univers 10 mg 7-22 tablet by ity of tablet 00:00: mouth [place] 00 daily. [facility] 2018-0 Yes [id number] 10mg Take 1 Univers 10 mg 7-22 tablet by ity of tablet 00:00: mouth [place] 00 daily. [facility] 2018-0 Yes [id number] 10mg Take 1 Univers 10 mg 7-22 tablet by ity of tablet 00:00: mouth [place] 00 daily. [facility] 2018-0 Yes [id number] 10mg Take 1 Univers 10 mg 7-22 tablet by ity of tablet 00:00: mouth [place] 00 daily. [facility] 2018-0 Yes [id number] 10mg Take 1 Univers 10 mg 7-22 tablet by ity of tablet 00:00: mouth [place] 00 daily. [facility] 2018-0 Yes [id number] 10mg Take 1 Univers 10 mg 7-22 tablet by ity of tablet 00:00: mouth [place] 00 daily. [facility] 2019-0 Yes [id number] 10mg Take 1 Univers 10 mg 7-22 tablet by ity of tablet 00:00: mouth [place] 00 daily. [facility] 2019-0 Yes [id number] 10mg Take 1 Univers 10 mg 7-22 tablet by ity of tablet 00:00: mouth [place] 00 daily. [facility] 2018-0 Yes [id number] 10mg Take 1 Univers 10 mg 7-22 tablet by ity of tablet 00:00: mouth [place] 00 daily. [facility] 2018-0 Yes [id number] 10mg Take 1 Univers 10 mg 7-22 tablet by ity of tablet 00:00: mouth [place] 00 daily. [facility] Yes [id number] 10mg Take 1 Univers 10 mg 7-22 tablet by ity of tablet 00:00: mouth [place] 00 daily. [facility] Yes [id number] 10mg Take 1 Univers 10 mg 7-22 tablet by ity of tablet 00:00: mouth [place] 00 daily. [facility] Yes [id number] 10mg Take 1 Univers 10 mg 7-22 tablet by ity of tablet 00:00: mouth [place] 00 daily. [facility] Yes [id number] 10mg Take 1 Univers 10 mg 7-22 tablet by ity of tablet 00:00: mouth [place] 00 daily. [facility] Yes [id number] 10mg Take 1 Univers 10 mg 7-22 tablet by ity of tablet 00:00: mouth [place] 00 daily. [facility] Yes [id number] 10mg Take 1 Univers 10 mg 7-22 tablet by ity of tablet 00:00: mouth [place] 00 daily. [facility] Yes [id number] 10mg Take 1 Univers 10 mg 7-22 tablet by ity of tablet 00:00: mouth [place] 00 daily. [facility] Yes [id number] 10mg Take 1 Univers 10 mg 7-22 tablet by ity of tablet 00:00: mouth [place] 00 daily. [facility] Yes [id number] 10mg Take 1 Univers 10 mg 7-22 tablet by ity of tablet 00:00: mouth [place] 00 daily. [facility] Yes [id number] 10mg Take 1 Univers 10 mg 7-22 tablet by ity of tablet 00:00: mouth [place] 00 daily. [facility] fexofenadin Yes Take by Uni vers e HCl 6-04 mouth. ity of (MALIKA 18:14: [place] ORAL) [facility] fluticasone Yes Use in [facility] ers propionate 6-04 each ity of (FLONASE 18:14: nostril. [place] NASAL) 12 [facility] mouth. ity of calc,iron,f 18:14: [place] olic 12 Medical ( Branch VITAMIN ORAL) doxylamine 2018-0 Yes Take by Univ ers (UNISOM, 6-04 mouth. ity of DOXYLAMINE, 18:14: [place] ) 25 mg 12 Medical tablet Branch fexofenadin 2018-0 Yes Take by Uni vers e HCl 6-04 mouth. ity of (MALIKA 18:14: [place] ORAL) 12 Medical Branch fluticasone Yes Use in Univ ers propionate 6-04 each ity of (FLONASE 18:14: nostril. [place] NASAL) 12 Medical Branch Yes Take by Univer s vit 6-04 mouth. ity of calc,iron,f 18:14: [place] olic 12 Medical ( Branch VITAMIN ORAL) doxylamine 2018-0 Yes Take by Univ ers (UNISOM, 6-04 mouth. ity of DOXYLAMINE, 18:14: [place] ) 25 mg 12 Medical tablet Branch fexofenadin Yes Take by Uni vers e HCl 6-04 mouth. ity of (MALIKA 18:14: [place] ORAL) 12 Medical Branch fluticasone Yes Use in Univ ers propionate 6-04 each ity of (FLONASE 18:14: nostril. [place] NASAL) 12 Medical Branch Yes Take by Univer s vit 6-04 mouth. ity of calc,iron,f 18:14: [place] olic 12 Medical ( Branch VITAMIN ORAL) doxylamine 0 Yes Take by Univ ers (UNISOM, 6-04 mouth. ity of DOXYLAMINE, 18:14: [place] ) 25 mg 12 Medical tablet Branch fexofenadin 2018-0 Yes Take by Uni vers e HCl 6-04 mouth. ity of (MALIKA 18:14: [place] ORAL) 12 Medical Branch fluticasone Yes Use in Univ ers propionate 6-04 each ity of (FLONASE 18:14: nostril. [place] NASAL) 12 Medical Branch 0 Yes Take by Univer s vit 6-04 mouth. ity of calc,iron,f 18:14: [place] olic 12 Medical ( Branch VITAMIN ORAL) doxylamine Yes Take by Univ ers (UNISOM, 6-04 mouth. ity of DOXYLAMINE, 18:14: [place] ) 25 mg 12 Medical tablet Branch fexofenadin Yes Take by Uni vers e HCl 6-04 mouth. ity of (MALIKA 18:14: [place] ORAL) 12 Medical Branch fluticasone Yes Use in Univ ers propionate 6-04 each ity of (FLONASE 18:14: nostril. [place] NASAL) 12 Medical Branch Yes Take by Univer s vit 6-04 mouth. ity of calc,iron,f 18:14: [place] olic 12 Medical ( Branch VITAMIN ORAL) doxylamine Yes Take by Univ ers (UNISOM, 6-04 mouth. ity of DOXYLAMINE, 18:14: [place] ) 25 mg 12 Medical tablet Branch fexofenadin Yes Take by Uni vers e HCl 6-04 mouth. ity of (MALIKA 18:14: [place] ORAL) 12 Medical Branch fluticasone Yes Use in Univ ers propionate 6-04 each ity of (FLONASE 18:14: nostril. [place] NASAL) 12 Medical Branch Yes Take by Univer s vit 6-04 mouth. ity of calc,iron,f 18:14: [place] olic 12 Medical ( Branch VITAMIN ORAL) doxylamine Yes Take by Univ ers (UNISOM, 6-04 mouth. ity of DOXYLAMINE, 18:14: [place] ) 25 mg 12 Medical tablet Branch fexofenadin Yes Take by Uni vers e HCl 6-04 mouth. ity of (MALIKA 18:14: [place] ORAL) 12 Medical Branch fluticasone Yes Use in Univ ers propionate 6-04 each ity of (FLONASE 18:14: nostril. [place] NASAL) 12 Medical Branch Yes Take by Univer s vit 6-04 mouth. ity of calc,iron,f 18:14: [place] olic 12 Medical ( Branch VITAMIN ORAL) doxylamine 0 Yes Take by Univ ers (UNISOM, 6-04 mouth. ity of DOXYLAMINE, 18:14: [place] ) 25 mg 12 Medical tablet Branch fexofenadin Yes Take by Uni vers e HCl 6-04 mouth. ity of (MALIKA 18:14: [place] ORAL) 12 Medical Branch fluticasone Yes Use in Univ ers propionate 6-04 each ity of (FLONASE 18:14: nostril. [place] NASAL) 12 Medical Branch 0 Yes Take by Univer s vit 6-04 mouth. ity of calc,iron,f 18:14: [place] olic 12 Medical ( Branch VITAMIN ORAL) doxylamine 0 Yes Take by Univ ers (UNISOM, 6-04 mouth. ity of DOXYLAMINE, 18:14: [place] ) 25 mg 12 Medical tablet Branch fexofenadin Yes Take by Uni vers e HCl 6-04 mouth. ity of (MALIKA 18:14: [place] ORAL) 12 Medical Branch fluticasone Yes Use in Univ ers propionate 6-04 each ity of (FLONASE 18:14: nostril. [place] NASAL) 12 Medical Branch Yes Take by Univer s vit 6-04 mouth. ity of calc,iron,f 18:14: [place] olic 12 Medical ( Branch VITAMIN ORAL) doxylamine 0 Yes Take by Univ ers (UNISOM, 6-04 mouth. ity of DOXYLAMINE, 18:14: [place] ) 25 mg 12 Medical tablet Branch fexofenadin Yes Take by Uni vers e HCl 6-04 mouth. ity of (MALIKA 18:14: [place] ORAL) 12 Medical Branch fluticasone Yes Use in Univ ers propionate 6-04 each ity of (FLONASE 18:14: nostril. [place] NASAL) 12 Medical Branch 0 Yes Take by Univer s vit 6-04 mouth. ity of calc,iron,f 18:14: [place] olic 12 Medical ( Branch VITAMIN ORAL) doxylamine 2018-0 Yes Take by Univ ers (UNISOM, 6-04 mouth. ity of DOXYLAMINE, 18:14: [place] ) 25 mg 12 Medical tablet Branch fexofenadin 2018-0 Yes Take by Uni vers e HCl 6-04 mouth. ity of (MALIKA 18:14: [place] ORAL) 12 Medical Branch fluticasone Yes Use in Univ ers propionate 6-04 each ity of (FLONASE 18:14: nostril. [place] NASAL) 12 Medical Branch Yes Take by Univer s vit 6-04 mouth. ity of calc,iron,f 18:14: [place] olic 12 Medical ( Branch VITAMIN ORAL) doxylamine 2019-0 Yes Take by Univ ers (UNISOM, 6-04 mouth. ity of DOXYLAMINE, 18:14: [place] ) 25 mg 12 Medical tablet Branch fexofenadin 2018-0 Yes Take by Uni vers e HCl 6-04 mouth. ity of (MALIKA 18:14: [place] ORAL) 12 Medical Branch fluticasone Yes Use in Univ ers propionate 6-04 each ity of (FLONASE 18:14: nostril. [place] NASAL) 12 Medical Branch 0 Yes Take by Univer s vit 6-04 mouth. ity of calc,iron,f 18:14: [place] olic 12 Medical ( Branch VITAMIN ORAL) doxylamine Yes Take by Univ ers (UNISOM, 6-04 mouth. ity of DOXYLAMINE, 18:14: [place] ) 25 mg 12 Medical tablet Branch fexofenadin 0 Yes Take by Uni vers e HCl 6-04 mouth. ity of (MALIKA 18:14: [place] ORAL) 12 Medical Branch fluticasone Yes Use in Univ ers propionate 6-04 each ity of (FLONASE 18:14: nostril. [place] NASAL) 12 Medical Branch 0 Yes Take by Univer s vit 6-04 mouth. ity of calc,iron,f 18:14: [place] olic 12 Medical ( Branch VITAMIN ORAL) doxylamine 2018-0 Yes Take by Univ ers (UNISOM, 6-04 mouth. ity of DOXYLAMINE, 18:14: [place] ) 25 mg 12 Medical tablet Branch fluticasone 2018-0 Yes Use in Univ ers propionate 6-04 each ity of (FLONASE 18:14: nostril. [place] NASAL) 12 Medical Branch 2019-0 Yes Take by Univer s vit 6-04 mouth. ity of calc,iron,f 18:14: [place] olic 12 Medical ( Branch VITAMIN ORAL) fluticasone Yes Use in Univ ers propionate 6-04 each ity of (FLONASE 18:14: nostril. [place] NASAL) Medical [place] [id number] Yes Take by Univer s vit 6-04 mouth. ity of calc,iron,f 18:14: [place] [address] Medical ( Branch VITAMIN ORAL) fluticasone [id number] Yes Use in Univ ers propionate 6-04 each ity of (FLONASE 18:14: nostril. [place] NASAL) Medical [place] [id number] Yes Take by Univer s vit 6-04 mouth. ity of calc,iron,f 18:14: [place] [address] Medical ( Branch VITAMIN ORAL) fluticasone Yes Use in Univ ers propionate 6-04 each ity of (FLONASE 18:14: nostril. [place] NASAL) [address] [place] [address] 0 Yes Take by Univer s vit 6-04 mouth. ity of calc,iron,f 18:14: [place] [address] Medical ( Branch VITAMIN ORAL) fluticasone Yes Use in Univ ers propionate 6-04 each ity of (FLONASE 18:14: nostril. [place] NASAL) [address] [place] [address] Yes Take by Univer s vit 6-04 mouth. ity of calc,iron,f 18:14: [place] [address] Medical ( Branch VITAMIN ORAL) fluticasone 0 Yes Use in Univ ers propionate 6-04 each ity of (FLONASE 18:14: nostril. [place] NASAL) [address] [place] [address] 0 Yes Take by Univer s vit 6-04 mouth. ity of calc,iron,f 18:14: [place] [address] Medical ( Branch VITAMIN ORAL) fluticasone 0 Yes Use in Univ ers propionate 6-04 each ity of (FLONASE 18:14: nostril. [place] NASAL) Medical [place] 2019-0 Yes Take by Univer s vit 6-04 mouth. ity of calc,iron,f 18:14: [place] [address] Medical ( Branch VITAMIN ORAL) fluticasone 0 Yes Use in Univ ers propionate 6-04 each ity of (FLONASE 18:14: nostril. [place] NASAL) Medical [place] [id number] Yes Take by Univer s vit 6-04 mouth. ity of calc,iron,f 18:14: [place] olic 12 Medical ( Branch VITAMIN ORAL) fluticasone 2018- Yes Use in Univ ers propionate 6-04 each ity of (FLONASE 18:14: nostril. [place] NASAL) Medical Branch Yes Take by Univer s vit 6-04 mouth. ity of calc,iron,f 18:14: [place] [address] Medical ( Branch VITAMIN ORAL) fluticasone Yes Use in Univ ers propionate 6-04 each ity of (FLONASE 18:14: nostril. [place] NASAL) Medical Branch Yes Take by Univer s vit 6-04 mouth. ity of calc,iron,f 18:14: [place] [address] Medical ( Branch VITAMIN ORAL) fexofenadin Yes Take by Uni vers e HCl 6-04 mouth. ity of (MALIKA 18:14: [place] ORAL) Medical Branch fluticasone Yes Use in Univ ers propionate 6-04 each ity of (FLONASE 18:14: nostril. [place] NASAL) Medical Branch Yes Take by Univer s vit 6-04 mouth. ity of calc,iron,f 18:14: [place] [address] Medical ( Branch VITAMIN ORAL) doxylamine Yes Take by Univ ers (UNISOM, 6-04 mouth. ity of DOXYLAMINE, 18:14: [place] ) 25 mg 12 Medical tablet Branch fexofenadin Yes Take by Uni vers e HCl 6-04 mouth. ity of (MALIKA 18:14: [place] ORAL) Medical Branch fluticasone Yes Use in Univ ers propionate 6-04 each ity of (FLONASE 18:14: nostril. [place] NASAL) Medical Branch Yes Take by Univer s vit 6-04 mouth. ity of calc,iron,f 18:14: [place] [address] Medical ( Branch VITAMIN ORAL) doxylamine 2018-0 Yes Take by Univ ers (UNISOM, 6-04 mouth. ity of DOXYLAMINE, 18:14: [place] ) 25 mg 12 Medical tablet Branch cephALEXin 2018- Yes [id number] 500mg Take 1 Univers (KEFLEX) 5-29 capsule by ity o f 500 mg 00:00: mouth 4 [place] capsule 00 (four) Medical times Branch daily. cephALEXin 2019-0 Yes [id number] 500mg Take 1 Univers (KEFLEX) 5-29 capsule by ity o f 500 mg 00:00: mouth 4 [place] capsule 00 (four) Medical times Branch daily. cephALEXin 2019-0 Yes [id number] 500mg Take 1 Univers (KEFLEX) 5-29 capsule by ity o f 500 mg 00:00: mouth 4 [place] capsule 00 (four) Medical times Branch daily. cephALEXin 2019-0 Yes [id number] 500mg Take 1 Univers (KEFLEX) 5-29 capsule by ity o f 500 mg 00:00: mouth 4 [place] capsule 00 (four) Medical times Branch daily. cephALEXin 2019-0 Yes [id number] 500mg Take 1 Univers (KEFLEX) 5-29 capsule by ity o f 500 mg 00:00: mouth 4 [place] capsule 00 (four) Medical times Branch daily. cephALEXin 2019-0 Yes [id number] 500mg Take 1 Univers (KEFLEX) 5-29 capsule by ity o f 500 mg 00:00: mouth 4 [place] capsule 00 (four) Medical times Branch daily. cephALEXin 2019-0 Yes [id number] 500mg Take 1 Univers (KEFLEX) 5-29 capsule by ity o f 500 mg 00:00: mouth 4 [place] capsule 00 (four) Medical times Branch daily. cephALEXin 2019-0 Yes [id number] 500mg Take 1 Univers (KEFLEX) 5-29 capsule by ity o f 500 mg 00:00: mouth 4 [place] capsule 00 (four) Medical times Branch daily. cephALEXin 2019-0 Yes [id number] 500mg Take 1 Univers (KEFLEX) 5-29 capsule by ity o f 500 mg 00:00: mouth 4 [place] capsule 00 (four) Medical times Branch daily. cephALEXin 2019-0 Yes [id number] 500mg Take 1 Univers (KEFLEX) 5-29 capsule by ity o f 500 mg 00:00: mouth 4 [place] capsule 00 (four) Medical times Branch daily. cephALEXin 2019-0 Yes [id number] 500mg Take 1 Univers (KEFLEX) 5-29 capsule by ity o f 500 mg 00:00: mouth 4 [place] capsule 00 (four) Medical times Branch daily. cephALEXin 2019-0 Yes [id number] 500mg Take 1 Univers (KEFLEX) 5-29 capsule by ity o f 500 mg 00:00: mouth 4 [place] capsule 00 (four) Medical times Branch daily. cephALEXin 2019-0 Yes [id number] 500mg Take 1 Univers (KEFLEX) 5-29 capsule by ity o f 500 mg 00:00: mouth 4 [place] capsule 00 (four) Medical times Branch daily. cephALEXin 2019-0 Yes [id number] 500mg Take 1 Univers (KEFLEX) 5-29 capsule by ity o f 500 mg 00:00: mouth 4 [place] capsule 00 (four) Medical times Branch daily. cephALEXin 2019-0 Yes [id number] 500mg Take 1 Univers (KEFLEX) 5-29 capsule by ity o f 500 mg 00:00: mouth 4 [place] capsule 00 (four) Medical times Branch daily. cephALEXin 2019-0 Yes [id number] 500mg Take 1 Univers (KEFLEX) 5-29 capsule by ity o f 500 mg 00:00: mouth 4 [place] capsule 00 (four) Medical times Branch daily. cephALEXin 2019-0 Yes [id number] 500mg Take 1 Univers (KEFLEX) 5-29 capsule by ity o f 500 mg 00:00: mouth 4 [place] capsule 00 (four) Medical times Branch daily. cephALEXin 2019-0 Yes [id number] 500mg Take 1 Univers (KEFLEX) 5-29 capsule by ity o f 500 mg 00:00: mouth 4 [place] capsule 00 (four) Medical times Branch daily. cephALEXin 2019-0 Yes [id number] 500mg Take 1 Univers (KEFLEX) 5-29 capsule by ity o f 500 mg 00:00: mouth 4 [place] capsule 00 (four) Medical times Branch daily. cephALEXin 2019-0 Yes [id number] 500mg Take 1 Univers (KEFLEX) 5-29 capsule by ity o f 500 mg 00:00: mouth 4 [place] capsule 00 (four) Medical times Branch daily. cephALEXin 2019-0 Yes [id number] 500mg Take 1 Univers (KEFLEX) 5-29 capsule by ity o f 500 mg 00:00: mouth 4 [place] capsule 00 (four) Medical times Branch daily. cephALEXin 2019-0 Yes [id number] 500mg Take 1 Univers (KEFLEX) 5-29 capsule by ity o f 500 mg 00:00: mouth 4 [place] capsule 00 (four) Medical times Branch daily. cephALEXin 2019-0 Yes [id number] 500mg Take 1 Univers (KEFLEX) 5-29 capsule by ity o f 500 mg 00:00: mouth 4 [place] capsule 00 (four) Medical times Branch daily. cephALEXin 2019-0 Yes [id number] 500mg Take 1 Univers (KEFLEX) 5-29 capsule by ity o f 500 mg 00:00: mouth 4 [place] capsule 00 (four) Medical times Branch daily. cephALEXin 2018-0 Yes [id number] 500mg Take 1 Univers (KEFLEX) 5-29 capsule by ity o f 500 mg 00:00: mouth 4 [place] capsule 00 (four) Medical times Branch daily. metroNIDAZO Yes [id number] 500mg Take 1 Univers LE (FLAGYL) 5-07 tablet by ity of 500 mg 00:00: mouth [place] tablet 00 every 12 Medical (twelve) Branch hours. metroNIDAZO Yes [id number] 500mg Take 1 Univers LE (FLAGYL) 5-07 tablet by ity of 500 mg 00:00: mouth [place] tablet 00 every 12 Medical (twelve) Branch hours. metroNIDAZO Yes [id number] 500mg Take 1 Univers LE (FLAGYL) 5-07 tablet by ity of 500 mg 00:00: mouth [place] tablet 00 every 12 Medical (twelve) Branch hours. metroNIDAZO 0 Yes [id number] 500mg Take 1 [facility] (FLAGYL) 5-07 tablet by ity of 500 mg 00:00: mouth [place] tablet 00 every 12 Medical (twelve) Branch hours. metroNIDAZO 0 Yes [id number] 500mg Take 1 [facility] (FLAGYL) 5-07 tablet by ity of 500 mg 00:00: mouth [place] tablet 00 every 12 Medical (twelve) Branch hours. metroNIDAZO 0 Yes [id number] 500mg Take 1 [facility] (FLAGYL) 5-07 tablet by ity of 500 mg 00:00: mouth [place] tablet 00 every 12 Medical (twelve) Branch hours. metroNIDAZO 2018-0 Yes [id number] 500mg Take 1 [facility] (FLAGYL) 5-07 tablet by ity of 500 mg 00:00: mouth [place] tablet 00 every 12 Medical (twelve) Branch hours. metroNIDAZO 0 Yes [id number] 500mg Take 1 [facility] (FLAGYL) 5-07 tablet by ity of 500 mg 00:00: mouth [place] tablet 00 every 12 Medical (twelve) Branch hours. metroNIDAZO 2019-0 Yes [id number] 500mg Take 1 [facility] (FLAGYL) 5-07 tablet by ity of 500 mg 00:00: mouth [place] tablet 00 every 12 Medical (twelve) Branch hours. metroNIDAZO 2019-0 Yes [id number] 500mg Take 1 [facility] (FLAGYL) 5-07 tablet by ity of 500 mg 00:00: mouth [place] tablet 00 every 12 Medical (twelve) Branch hours. metroNIDAZO Yes [id number] 500mg Take 1 [facility] (FLAGYL) 5-07 tablet by ity of 500 mg 00:00: mouth [place] tablet 00 every 12 Medical (twelve) Branch hours. metroNIDAZO 0 Yes [id number] 500mg Take 1 [facility] (FLAGYL) 5-07 tablet by ity of 500 mg 00:00: mouth [place] tablet 00 every 12 Medical (twelve) Branch hours. metroNIDAZO Yes [id number] 500mg Take 1 [facility] (FLAGYL) 5-07 tablet by ity of 500 mg 00:00: mouth [place] tablet 00 every 12 Medical (twelve) Branch hours. metroNIDAZO 0 Yes [id number] 500mg Take 1 [facility] (FLAGYL) 5-07 tablet by ity of 500 mg 00:00: mouth [place] tablet 00 every 12 Medical (twelve) Branch hours. metroNIDAZO 0 Yes [id number] 500mg Take 1 [facility] (FLAGYL) 5-07 tablet by ity of 500 mg 00:00: mouth [place] tablet 00 every 12 Medical (twelve) Branch hours. metroNIDAZO Yes [id number] 500mg Take 1 [facility] (FLAGYL) 5-07 tablet by ity of 500 mg 00:00: mouth [place] tablet 00 every 12 Medical (twelve) Branch hours. metroNIDAZO 2018-0 Yes [id number] 500mg Take 1 [facility] (FLAGYL) 5-07 tablet by ity of 500 mg 00:00: mouth [place] tablet 00 every 12 Medical (twelve) Branch hours. metroNIDAZO 2018-0 Yes [id number] 500mg Take 1 [facility] (FLAGYL) 5-07 tablet by ity of 500 mg 00:00: mouth [place] tablet 00 every 12 Medical (twelve) Branch hours. metroNIDAZO 2019-0 Yes [id number] 500mg Take 1 [facility] (FLAGYL) 5-07 tablet by ity of 500 mg 00:00: mouth [place] tablet 00 every 12 Medical (twelve) Branch hours. metroNIDAZO 2019-0 Yes [id number] 500mg Take 1 [facility] (FLAGYL) 5-07 tablet by ity of 500 mg 00:00: mouth [place] tablet 00 every 12 Medical (twelve) Branch hours. metroNIDAZO 2019-0 Yes [id number] 500mg Take 1 [facility] (FLAGYL) 5-07 tablet by ity of 500 mg 00:00: mouth [place] tablet 00 every 12 Medical (twelve) Branch hours. metroNIDAZO 2019-0 Yes [id number] 500mg Take 1 [facility] (FLAGYL) 5-07 tablet by ity of 500 mg 00:00: mouth [place] tablet 00 every 12 Medical (twelve) Branch hours. metroNIDAZO 2019-0 Yes [id number] 500mg Take 1 [facility] (FLAGYL) 5-07 tablet by ity of 500 mg 00:00: mouth [place] tablet 00 every 12 Medical (twelve) Branch hours. metroNIDAZO 2018-0 Yes [id number] 500mg Take 1 [facility] (FLAGYL) 5-07 tablet by ity of 500 mg 00:00: mouth [place] tablet 00 every 12 Medical (twelve) Branch hours. metroNIDAZO 2019-0 Yes [id number] 500mg Take 1 [facility] (FLAGYL) 5-07 tablet by ity of 500 mg 00:00: mouth [place] tablet 00 every 12 Medical (twelve) Branch hours. ACYCLOVIR 2018-0 Yes Take by Unive rs ORAL 3-18 mouth. ity of 14:30: [address] Branch ACYCLOVIR 2018-0 Yes Take by Unive rs ORAL 3-18 mouth. ity of 14:30: [address] ACYCLOVIR 2018-0 Yes Take by Unive rs ORAL 3-18 mouth. ity of 14:30: [address] ACYCLOVIR 2018-0 Yes Take by Unive rs ORAL 3-18 mouth. ity of 14:30: [address] ACYCLOVIR 2018-0 Yes Take by Unive rs ORAL 3-18 mouth. ity of 14:30: [address] ACYCLOVIR 2018-0 Yes Take by Unive rs ORAL 3-18 mouth. ity of 14:30: [address] ACYCLOVIR Yes Take by Unive rs ORAL 3-18 mouth. ity of 14:30: [address] ACYCLOVIR Yes Take by Unive rs ORAL 3-18 mouth. ity of 14:30: [address] ACYCLOVIR Yes Take by Unive rs ORAL 3-18 mouth. ity of 14:30: [address] ACYCLOVIR Yes Take by Unive rs ORAL 3-18 mouth. ity of 14:30: [address] ACYCLOVIR Yes Take by Unive rs ORAL 3-18 mouth. ity of 14:30: [address] ACYCLOVIR Yes Take by Unive rs ORAL 3-18 mouth. ity of 14:30: [address] ACYCLOVIR Yes Take by Unive rs ORAL 3-18 mouth. ity of 14:30: [address] ACYCLOVIR Yes Take by Unive rs ORAL 3-18 mouth. ity of 14:30: [address] ACYCLOVIR Yes Take by Unive rs ORAL 3-18 mouth. ity of 14:30: [address] acyclovir Yes Univers 400 mg 3-15 ity of tablet 00:00: [address] montelukast 0 Yes Univer s 10 mg 3-15 ity of tablet 00:00: [place] [facility] acyclovir [id number] Yes Univers 400 mg 3-15 ity of tablet 00:00: [facility] Branch montelukast 0 Yes Univer s 10 mg 3-15 ity of tablet 00:00: [address] acyclovir [id number] Yes Univers 400 mg 3-15 ity of tablet 00:00: [place] [facility] montelukast 20190 Yes Univer s 10 mg 3-15 ity of tablet 00:00: [address] [place] [address] acyclovir [id number] Yes Univers 400 mg 3-15 ity of tablet 00:00: [place] [facility] montelukast 0 Yes Univer s 10 mg 3-15 ity of tablet 00:00: [facility] acyclovir 2019-0 Yes Univers 400 mg 3-15 ity of tablet 00:00: [place] [address] Medical Branch montelukast 2019-0 Yes Univer s 10 mg 3-15 ity of tablet 00:00: [place] [address] Medical Branch acyclovir 2019-0 Yes Univers 400 mg 3-15 ity of tablet 00:00: [address] 2019-0 Yes Univer s 10 mg 3-15 ity of tablet 00:00: [place] [address] Medical Branch acyclovir 2019-0 Yes Univers 400 mg 3-15 ity of tablet 00:00: [address] montelukast 2019-0 Yes Univer s 10 mg 3-15 ity of tablet 00:00: [place] [address] Medical Branch acyclovir 2019-0 Yes Univers 400 mg 3-15 ity of tablet 00:00: [place] [address] [facility] 3-15 ity of tablet 00:00: [place] [address] Medical Branch acyclovir 2019-0 Yes Univers 400 mg 3-15 ity of tablet 00:00: [address] montekast 2019-0 Yes Univer s 10 mg 3-15 ity of tablet 00:00: [place] [address] Medical Branch acyclovir 2019-0 Yes Univers 400 mg 3-15 ity of tablet 00:00: [place] [address] Medical [place] montelukast 2019-0 Yes Univer s 10 mg 3-15 ity of tablet 00:00: [place] [address] Medical Branch acyclovir 2019-0 Yes Univers 400 mg 3-15 ity of tablet 00:00: [place] [address] Medical Branch montelukast 2019-0 Yes Univer s 10 mg 3-15 ity of tablet 00:00: [place] [address] Medical Branch acyclovir 2019-0 Yes Univers 400 mg 3-15 ity of tablet 00:00: [place] [address] Medical Branch montelukast 2019-0 Yes Univer s 10 mg 3-15 ity of tablet 00:00: [place] [address] Medical Branch acyclovir 2019-0 Yes Univers 400 mg 3-15 ity of tablet 00:00: [place] [address] Medical [place] montelukast 2019-0 Yes Univer s 10 mg 3-15 ity of tablet 00:00: [place] [address] Medical Branch acyclovir 2019-0 Yes Univers 400 mg 3-15 ity of tablet 00:00: [place] [address] Medical Branch acyclovir 2019-0 Yes Univers 400 mg 3-15 ity of tablet 00:00: [place] 00 [facility] acyclovir 2019-0 Yes Univers 400 mg 3-15 ity of tablet 00:00: [place] 00 [facility] acyclovir 2019-0 Yes Univers 400 mg 3-15 ity of tablet 00:00: [address] acyclovir 2019-0 Yes Univers 400 mg 3-15 ity of tablet 00:00: [address] acyclovir 2019-0 Yes Univers 400 mg 3-15 ity of tablet 00:00: [address] acyclovir 2019-0 Yes Univers 400 mg 3-15 ity of tablet 00:00: [address] acyclovir 2019-0 Yes Univers 400 mg 3-15 ity of tablet 00:00: [address] acyclovir 2019-0 Yes Univers 400 mg 3-15 ity of tablet 00:00: [address] acyclovir 2019-0 Yes Univers 400 mg 3-15 ity of tablet 00:00: [address] acyclovir 2019-0 Yes Univers 400 mg 3-15 ity of tablet 00:00: [address] montelukast 2019-0 Yes Univer s 10 mg 3-15 ity of tablet 00:00: [address] acyclovir 2019-0 Yes Univers 400 mg 3-15 ity of tablet 00:00: [address] montelukast 2019-0 Yes Univer s 10 mg 3-15 ity of tablet 00:00: [address] 2019-0 2019- No Unive rs 10 mg 3-15 09-05 ity of tablet 00:00: 00:00 [place] 00 :00 [facility] Immunizations Ordered Filled Immunization Date Status Comments Sour e Immunization Name Name Rho (d) Immune 2019-03-01 Completed University of Globulin 00:00:00 [facility] Rho (d) Immune 2019-03-01 Completed University of Globulin 00:00:00 [facility] Rho (d) Immune 2019-03-01 Completed University of Globulin 00:00:00 [facility] Rho (d) Immune 2019-03-01 Completed University of Globulin 00:00:00 [facility] Rho (d) Immune 2019-03-01 Completed University of Globulin 00:00:00 [facility] Rho (d) Immune 2019-03-01 Completed University of Globulin 00:00:00 [facility] Rho (d) Immune 2019-03-01 Completed University of Globulin 00:00:00 [facility] Rho (d) Immune 2019-03-01 Completed University of Globulin 00:00:00 [facility] Rho (d) Immune 2019-03-01 Completed University of Globulin 00:00:00 [facility] TDAP (ADACEL) 2018-12-20 Completed University of VACCINE 00:00:00 [facility] Rho (d) Immune 2018-12-20 Completed University of Globulin 00:00:00 [facility] TDAP (ADACEL) 2018-12-20 Completed University of VACCINE 00:00:00 [facility] Rho (d) Immune 2018-12-20 Completed University of Globulin 00:00:00 [facility] TDAP (ADACEL) 2018-12-20 Completed University of VACCINE 00:00:00 [facility] Rho (d) Immune 2018-12-20 Completed University of Globulin 00:00:00 [facility] TDAP (ADACEL) 2018-12-20 Completed University of VACCINE 00:00:00 [facility] TDAP (ADACEL) 2018-12-20 Completed University of VACCINE 00:00:00 [facility] Rho (d) Immune 2018-12-20 Completed University of Globulin 00:00:00 [facility] TDAP (ADACEL) 2018-12-20 Completed University of VACCINE 00:00:00 [facility] Rho (d) Immune 2018-12-20 Completed University of Globulin 00:00:00 [facility] Rho (d) Immune 2018-12-20 Completed University of Globulin 00:00:00 [facility] TDAP (ADACEL) 2018-12-20 Completed University of VACCINE 00:00:00 [facility] Rho (d) Immune 2018-12-20 Completed University of Globulin 00:00:00 [facility] TDAP (ADACEL) 2018-12-20 Completed University of VACCINE 00:00:00 [facility] Rho (d) Immune 2018-12-20 Completed University of Globulin 00:00:00 [facility] TDAP (ADACEL) 2018-12-20 Completed University of VACCINE 00:00:00 [facility] Rho (d) Immune 2018-12-20 Completed University of Globulin 00:00:00 [facility] Influenza Virus 2018-12-09 Completed Universit y of Vaccine 00:00:00 [facility] Influenza Virus 2018-12-09 Completed Universit y of Vaccine 00:00:00 [facility] Influenza Virus 2018-12-09 Completed Universit y of Vaccine 00:00:00 [facility] Influenza Virus 2018-12-09 Completed Universit y of Vaccine 00:00:00 [facility] Influenza Virus 2018-12-09 Completed Universit y of Vaccine 00:00:00 [facility] Influenza Virus 2018-12-09 Completed Universit y of Vaccine 00:00:00 [facility] Influenza Virus 2018-12-09 Completed Universit y of Vaccine 00:00:00 [facility] Influenza Virus 2018-12-09 Completed Universit y of Vaccine 00:00:00 [facility] Influenza Virus 2018-12-09 Completed Universit y of Vaccine 00:00:00 [facility] Influenza Virus 2018-05-28 Completed Universit y of Vaccine Quad .5 mL 00:00:00 [facility] [place] [facility] 6+ [place] Branch Influenza Virus 2018-05-28 Completed Universit y of Vaccine Quad .5 mL 00:00:00 [facility] [place] [facility] 6+ MO Branch Influenza Virus 2018-05-28 Completed Universit y of Vaccine Quad .5 mL 00:00:00 [facility] [place] [facility] 6+ MO Branch Influenza Virus 2018-05-28 Completed Universit y of Vaccine Quad .5 mL 00:00:00 [facility] [place] [facility] 6+ MO Branch Influenza Virus 2018-05-28 Completed Universit y of Vaccine Quad .5 mL 00:00:00 [place] [address]+ MO Branch Influenza Virus 2018-05-28 Completed Universit y of Vaccine Quad .5 mL 00:00:00 [facility] [place] [facility] 6+ MO Branch Influenza Virus 2018-05-28 Completed Universit y of Vaccine Quad .5 mL 00:00:00 [facility] [place] [facility] 6+ MO Branch Influenza Virus 2018-05-28 Completed Universit y of Vaccine Quad .5 mL 00:00:00 [place] [facility] 6[facility] MO Branch Influenza Virus 2018-05-28 Completed Universit y of Vaccine Quad .5 mL 00:00:00 [facility] [place] [facility] 6+ MO Branch Influenza Virus 2018-05-28 Completed Universit y of Vaccine Quad .5 mL 00:00:00 [facility] [place] [facility] 6+ MO Branch Influenza Virus 2018-05-28 Completed Universit y of Vaccine Quad .5 mL 00:00:00 [facility] [place] [facility] 6+ MO Branch Influenza Virus 2018-05-28 Completed Universit y of Vaccine Quad .5 mL 00:00:00 [place] [facility] 6+ MO Branch Influenza Virus 2018-05-28 Completed Universit y of Vaccine Quad .5 mL 00:00:00 [place] [facility] 6+ MO Branch Influenza Virus 2018-05-28 Completed Universit y of Vaccine Quad .5 mL 00:00:00 [place] [facility] 6+ MO Branch Influenza Virus 2018-05-28 Completed Universit y of Vaccine Quad .5 mL 00:00:00 [place] [facility] 6+ MO Branch Influenza Virus 2018-05-28 Completed Universit y of Vaccine Quad .5 mL 00:00:00 [place] [facility] 6+ MO Branch Influenza Virus 2018-05-28 Completed Universit y of Vaccine Quad .5 mL 00:00:00 [place] [facility] 6+ MO Branch Influenza Virus 2018-05-28 Completed Universit y of Vaccine Quad .5 mL 00:00:00 [place] [facility] 6+ MO Branch Influenza Virus 2018-05-28 Completed Universit y of Vaccine Quad .5 mL 00:00:00 [place] [facility] 6+ MO Branch Influenza Virus 2018-05-28 Completed Universit y of Vaccine Quad .5 mL 00:00:00 [place] [facility] 6+ MO Branch Influenza Virus 2018-05-28 Completed Universit y of Vaccine Quad .5 mL 00:00:00 [place] [facility] 6+ MO Branch Influenza Virus 2018-05-28 Completed Universit y of Vaccine Quad .5 mL 00:00:00 [place] [facility] 6+ MO Branch Influenza Virus 2018-05-28 Completed Universit y of Vaccine Quad .5 mL 00:00:00 [place] [facility] 6+ MO Branch Influenza Virus 2018-05-28 Completed Universit y of Vaccine Quad .5 mL 00:00:00 [place] [facility] 6+ MO Branch Influenza Virus 2018-05-28 Completed Universit y of Vaccine Quad .5 mL 00:00:00 [place] [facility] 6+ MO Branch Influenza Virus 2018-05-28 Completed Universit y of Vaccine Quad .5 mL 00:00:00 [place] [facility] 6+ MO Branch Influenza Virus 2018-05-28 Completed Universit y of Vaccine Quad .5 mL 00:00:00 [place] [facility] 6+ MO Branch Influenza Virus 2018-05-28 Completed Universit y of Vaccine Quad .5 mL 00:00:00 [place] [facility] 6+ MO Branch Influenza Virus 2018-05-28 Completed Universit y of Vaccine Quad .5 mL 00:00:00 [facility] IM 6+ MO Branch Influenza Virus 2018-05-28 Completed Universit y of Vaccine Quad .5 mL 00:00:00 [place] [facility] IM 6+ MO Branch Influenza Virus 2018-05-28 Completed Universit y of Vaccine Quad .5 mL 00:00:00 [place] [facility] IM 6+ MO Branch Influenza Virus 2018-05-28 Completed Universit y of Vaccine Quad .5 mL 00:00:00 [place] [facility] IM 6+ MO Branch Influenza Virus 2018-05-28 Completed Universit y of Vaccine Quad .5 mL 00:00:00 [place] [facility] IM 6+ MO Branch Influenza Virus 2018-05-28 Completed Universit y of Vaccine Quad .5 mL 00:00:00 [facility] [place] [facility] 6+ [place] Branch Vital Signs Vital Name Observation Time Observation Value Comments Source Systolic blood 2021-04-10 101 mm[Hg] University of pressure 23:28:00 [facility] Diastolic blood 2021-04-10 67 mm[Hg] University o f pressure 23:28:00 [facility] Heart rate 2021-04-10 85 /min University of 23:28:00 [facility] Body temperature 2021-04-10 36.61 [place] University of 23:28:00 [facility] Respiratory rate 2021-04-10 18 /min University of 23:28:00 [facility] Body height 2021-04-10 162.6 cm University of 23:28:00 [facility] Body weight 2021-04-10 70.897 kg University of 23:28:00 [facility] BMI 2021-04-10 26.83 kg/m2 University of 23:28:00 [facility] Oxygen saturation 2021-04-10 100 /min [facility] Arterial blood 23:28:00 [facility] Pulse oximetry Branch Systolic blood 2021-01-15 132 mm[Hg] University of pressure 21:11:00 [facility] Diastolic blood 2021-01-15 77 mm[Hg] University o f pressure 21:11:00 [facility] Heart rate 2021-01-15 92 /min University of 21:11:00 [facility] Body temperature 2021-01-15 36.89 [place] University of 21:11:00 [facility] Respiratory rate 2021-01-15 18 /min University of 21:11:00 [facility] Body height 2021-01-15 162.6 cm University of 21:11:00 [facility] Body weight 2021-01-15 63.504 kg University of 21:11:00 [facility] BMI 2021-01-15 24.03 kg/m2 University of 21:11:00 [facility] Oxygen saturation 2021-01-15 99 /min University of in Arterial blood 21:11:00 [facility] kin by Pulse oximetry Branch Systolic blood 2020-11-30 108 mm[Hg] University of pressure 23:03:00 [facility] Diastolic blood 2020-11-30 71 mm[Hg] University o f pressure 23:03:00 [facility] Heart rate 2020-11-30 125 /min pt states she University of 23:03:00 is anxious [facility] Body temperature 2020-11-30 36.78 [place] University of 23:03:00 [facility] Respiratory rate 2020-11-30 16 /min University of 23:03:00 [facility] Body weight 2020-11-30 63.504 kg University of 23:03:00 [facility] BMI 2020-11-30 24.03 kg/m2 University of 23:03:00 [facility] Oxygen saturation 2020-11-30 98 /min University of in Arterial blood 23:03:00 [facility] by Pulse oximetry Branch Systolic blood 2019-04-02 102 mm[Hg] University of pressure 17:11:00 [facility] Diastolic blood 2019-04-02 66 mm[Hg] University o f pressure 17:11:00 [facility] Heart rate 2019-04-02 71 /min University of 17:11:00 [facility] Body temperature 2019-04-02 37 [place] University of 17:11:00 [facility] Respiratory rate 2019-04-02 18 /min University of 17:11:00 [facility] Body height 2019-04-02 162.6 cm University of 17:11:00 [facility] Body weight 2019-04-02 75.751 kg University of 17:11:00 [facility] BMI 2019-04-02 28.67 kg/m2 University of 17:11:00 [facility] Systolic blood 2018-11-30 97 mm[Hg] University of pressure 14:41:00 [facility] Diastolic blood 2018-11-30 63 mm[Hg] University o f pressure 14:41:00 [facility] Heart rate 2018-11-30 81 /min University of 14:41:00 [facility] Branch Body temperature 2018-11-30 36.72 [place] University of 14:41:00 [facility] Respiratory rate 2018-11-30 20 /min University of 14:41:00 [facility] Body height 2018-11-30 162.6 cm University of 14:41:00 [facility] Body weight 2018-11-30 76.204 kg University of 14:41:00 [facility] BMI 2018-11-30 28.84 kg/m2 University of 14:41:00 [facility] Systolic blood 2018-11-22 97 mm[Hg] University of pressure 20:36:00 [facility] Diastolic blood 2018-11-22 62 mm[Hg] University o f pressure 20:36:00 [facility] Heart rate 2018-11-22 95 /min University of 20:36:00 [facility] Body temperature 2018-11-22 36.61 [place] University of 20:36:00 [facility] Respiratory rate 2018-11-22 18 /min University of 20:36:00 [facility] Body weight 2018-11-22 73.936 kg University of 20:36:00 [facility] BMI 2018-11-22 27.98 kg/m2 University of 20:36:00 [facility] Systolic blood 2018-11-15 101 mm[Hg] University of pressure 13:37:00 [facility] Diastolic blood 2018-11-15 59 mm[Hg] University o f pressure 13:37:00 [facility] Heart rate 2018-11-15 96 /min University of 13:37:00 [facility] Body temperature 2018-11-15 36.72 [place] University of 13:37:00 [facility] Respiratory rate 2018-11-15 16 /min University of 13:37:00 [facility] Body weight 2018-11-15 75.388 kg University of 13:37:00 [facility] BMI 2018-11-15 28.53 kg/m2 University of 13:37:00 [facility] Systolic blood 2018-11-08 103 mm[Hg] University of pressure 21:02:00 [place] [facility] Diastolic blood 2018-11-08 61 mm[Hg] University o f pressure 21:02:00 [facility] Heart rate 2018-11-08 96 /min University of 21:02:00 [place] [facility] Body temperature 2018-11-08 36.72 [place] University of 21:02:00 [facility] Respiratory rate 2018-11-08 18 /min [facility] 21:02:00 [facility] Body weight 2018-11-08 73.846 kg [facility] 21:02:00 [facility] BMI 2018-11-08 27.94 kg/m2 [facility] 21:02:00 [facility] Systolic blood 2018-10-31 100 mm[Hg] University of pressure 20:38:00 [facility] Diastolic blood 2018-10-31 64 mm[Hg] Geronimo o f pressure 20:38:00 [facility] Heart rate 2018-10-31 91 /min University 20:38:00 [facility] Body temperature 2018-10-31 37 [facility] 20:38:00 [facility] Respiratory rate 2018-10-31 20 /min [facility] 20:38:00 [facility] Body height 2018-10-31 162.6 cm [facility] 20:38:00 [facility] Body weight 2018-10-31 73.483 [facility] 20:38:00 [facility] BMI 2018-10-31 27.81 kg/m2 University 20:38:00 [facility] Procedures Procedure Date / Time Performing Clinician Source Performed ASSIGNMENT OF BENEFITS 2021-04-10 23:10:08 Doctor Sanchezlibrado [facility] AUTHORIZATION FOR RELEASE 2019-10-02 05:01:00 Doctor Alvarado [facility] Name [facility] ASSIGNMENT OF BENEFITS 2019-04-02 17:01:11 Doctor Alvarado [facility] Name [facility] [place] [facility] ADMISSION 2019-03-01 06:01:00 Doctor Alvarado [facility] DME/SUPPLY JUSTIFICATION 2018-11-12 05:01:00 Doctor Alvarado [facility] 2018-10-30 05:01:00 Doctor Alvarado [facility] SECOND AND THIRD 2018-10-26 15:34:00 Gabriella Pulido [facility]TRASOUND Medical [facility] SECOND AND THIRD 2018-10-26 15:29:00 Gabriella Pulido [facility] ULTRASOUND Medical [facility] MEDICATION CORRESPONDENCE 2018-10-18 05:01:00 Doctor Alvarado [facility] Name [facility] Encounters Start End Encounter Admission Attending Care Care Encounter Source Date/Time Date/Time Type Type Clinicians Facility Department ID 2021-04-10 2021-04-10 Urgent Robin Oseguera [facility] 1.2.840.114 [id number] Univers 17:40:00 18:00:00 Kerline Morales [facility] [id number] ity of [place] 4.2.7.2.686 Klaus as ANDREA?BLEA [id number] Fl gen[address] MEDICAL OFFICE [facility] 2021-04-10 2021-04-10 Outpatient R [facility] [id number] Univers 17:40:00 17:40:00 [id number] ity [facility] 2021-04-10 2021-04-10 [facility] [id number] Univers 17:40:00 17:40:00 KERLINE [facility] 2021-04-10 2021-04-10 Orders Doctor MCGOWAN 1.2.840.114 [id number] Univers 00:00:00 00:00:00 Only Unassigned, CARLOS ALBERTO 350.1.13.10 ity of [place] [facility] [id number] Klaus as [phone] [address] 2021-01-15 2021-01-15 [facility] [id number] Univers 16:20:00 17:27:15 [facility]-01-15 2021-01-15 Urgent Gwyn [facility] 1.2.840.114 [id number] Univers 16:10:19 17:27:15 [facility] [id number] it y of [place] [id number] Klaus as ANDREA?BLEA [phone] Fl eddy [address] MEDICAL OFFICE [facility] 2021-01-15 2021-01-15 Outpatient R [facility] [id number] Univers 16:20:00 16:20:00 [id number] [facility] 2021-01-01 2021-01-01 [facility] [id number] Univers 10:00:00 10:00:00 JANES [id number] [facility] 2020-12-31 2020-12-31 Outpatient R JAISON, [facility] [id number] Univers 08:00:00 08:00:00 JANES [id number] ity of [facility] 2020-12-30 2020-12-30 Outpatient R ABBIE, [facility] [id number] Univers 13:00:00 13:00:00 KEVIN [id number] ity [facility] 2020-12-09 2020-12-09 [facility] [id number] Univers 13:00:00 13:00:00 KEVIN [id number] ity of [facility] 2020-12-09 2020-12-09 [facility] [id number] Univers 13:00:00 13:00:00 KEVIN ity [facility] 2020-11-30 2020-11-30 [facility] 1.2.840.114 [id number] Univers 17:57:27 18:43:09 Care [facility] 350.1.13.10 i ty of [place] 4.2.7.2.686 Klaus as Andrea?Blea [phone] [address] Medical Office Building 2020-11-30 2020-11-30 Outpatient R [facility] [id number] Univers 18:00:00 18:00:00 [id number] ity of [facility] 2020-11-30 2020-11-30 [facility]patient [facility] [id number] Univers 18:00:00 18:00:00 IZA sigrid o f [facility] 2019-10-02 2019-10-02 Orders Doctor ROSLYN 1.2.840.114 [id number] Univers 00:00:00 00:00:00 Only Unassigned, CARLOS ALBERTO 350.1.13.10 ity of [place] [facility] [id number] Klaus as [phone] [address] 2019-05-08 2019-05-08 Patient Jennifer [facility] 1.2.840.114 [id number] Univers 00:00:00 00:00:00 Secure Msg Ya [place] 350.1.13.10 [place] [phone] [address] 2019-04-02 2019-04-02 [facility] [id number] [facility] 11:01:34 11:16:34 Liz [place] 350.1.13.10 [place] [phone] [address] 2019-04-02 2019-04-02 Orders Doctor ROSLYN 1.2.840.114 [id number] Univers 00:00:00 00:00:00 Only Unassigned, CARLOS ALBERTO 350.1.13.10 ity of [place] [facility] 4.2.7.2.686 Klaus as [phone] [address] 2019-03-01 2019-03-01 Orders Doctor ROSLYN 1.2.840.114 [id number] Univers 00:00:00 00:00:00 Only Unassigned, CARLOS ALBERTO 350.1.13.10 ity of [place] [facility] 4.2.7.2.686 Klaus as [phone] [address] 2018-11-30 2018-11-30 Rout[facility] [id number] [facility] 09:24:30 10:25:31 Liz [place] 350.1.13.10 [place] [phone] [address] 2018-11-30 2018-11-30 Patient Dirklori [facility] 1.2.840.114 [id number] Univers 00:00:00 00:00:00 Secure Msg Zoe [place] 350.1.13.10 [place] [phone] [address] 2018-11-22 2018-11-22 Nurse Nurse, [facility] 1.2.840.114 [id number] [facility] 15:18:15 15:43:44 Visit Gabriella Pulido 350.1.13.10 [place] [phone] [address] 2018-11-19 2018-11-19 Patient Rigoberto [facility] 1.2.840.114 [id number] Univers 00:00:00 00:00:00 Secure Msnishi Bush Noemi 350.1.13.10 [place] [phone] [address] 2018-11-15 2018-11-15 Nurse Nurse, [facility] 1.2.840.114 [id number] [facility] 08:30:29 08:45:29 Visit Gabriella Pulido 350.1.13.10 [place] [phone] [address] 2018-11-12 2018-11-12 Orders Doctor ROSLYN 1.2.840.114 [id number] Univers 00:00:00 00:00:00 Only Unassigned, CARLOS ALBERTO 350.1.13.10 ity of [place] [facility] 4.2.7.2.686 Klaus as [phone] [address] 2018-11-08 2018-11-08 Nurse Nurse, [facility] 1.2.840.114 [id number] Univers 15:42:12 16:11:26 Visit Gabriella Pulido 350.1.13.10 [place] [phone] [address] 2018-11-07 2018-11-07 Telephone Gabriella Pulido [facility] 1.2.840.114 [id number] Univers 00:00:00 00:00:00 Farhad [place] 350.1.13.10 i [place] [phone] [address] 2018-11-01 2018-11-01 Telephone Morenita [facility] 1.2.840.114 [id number] Univers 00:00:00 00:00:00 Liz Noemi 350.1.13.10 i [place]2.[place] [phone] [address] 2018-10-31 2018-10-31 Routine Gabriella Pulido [facility] [id number] Univers 15:12:11 15:38:01 Farhad [place] 350.1.13.10 [place] of [place]2.[place] [phone] [address] 2018-10-30 2018-10-30 Orders Doctor ROSLYN 1.2.840.114 [id number] Univers 00:00:00 00:00:00 Only Unassigned, CARLOS ALBERTO 350.1.13.10 ity of [place] [facility] 4.2.7.2.686 Klaus as [phone] [address] 2018-10-29 2018-10-29 Telephone Gabriella Pulido [facility] 1.2.840.114 [id number] Univers 00:00:00 00:00:00 Farhad [place] 350.1.13.10 [place] [phone] [address] 2018-10-26 2018-10-26 Inspector Filters 1, [facility] Us Room UNIVERSIT 1 .2.840.114 [id number] Univers 09:08:17 11:12:39 Visit Lee Beatrice Palacio [facility] 350.1.1 3.10 ity of [place] [phone] [place] [address] [place] 2018-10-18 2018-10-18 Orders Doctor ROSLYN 1.2.840.114 [id number] Univers 00:00:00 00:00:00 Only Unassigned, CARLOS ALBERTO 350.1.13.10 ity of [place] [facility] 4.2.7.2.686 Klaus as [phone] [place] [address] [place] 2018-10-15 2018-10-15 Telephone Gabriella Pulido [facility] 1.2.840.114 [id number] Univers 00:00:00 00:00:00 Cam [place] 350.1.13.10 i [place] [phone] Fl [address] 2018-10-09 2018-10-09 Telephone Gabriella Pulido [facility] 1.2.840.114 [id number] Univers 00:00:00 00:00:00 Cam [place] 350.1.13.10 i ty [place] [phone] Fl dic[address] 2018-10-09 2018-10-09 Telephone Gabriella Pulido [facility] 1.2.840.114 [id number] Univers 00:00:00 00:00:00 Cam [place] 350.1.13.10 [place] [phone] [address] 2018-10-08 2018-10-08 Telephone Gabriella Pulido [facility] 1.2.840.114 [id number] Univers 00:00:00 00:00:00 Cam [place] 350.1.13.10 [place]2.[place] [phone] Fl dic[address] 2018-10-05 2018-10-05 Telephone Gabriella Pulido [facility] 1.2.840.114 [id number] Univers 00:00:00 00:00:00 Cam [place] 350.1.13.10 [place] [phone] [address] Results This patient has no known results.
[2021-10-29] MEDS ORDERED: ACETAMINOPHEN 325 MG TABLET ONE (09:02)
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
--- NOTE | 2021-10-29 09:29 | RAD REPORT ---
EXAM DESCRIPTION: RAD - Elbow Left 3 View - 10/29/2021 9:16 am CLINICAL HISTORY: Pain COMPARISON: No comparisons FINDINGS: No acute fracture. No malalignment. No significant focal degenerative changes. IMPRESSION: No acute osseous abnormality involving the left elbow.
--- NOTE | 2021-10-29 09:48 | RAD REPORT ---
EXAM DESCRIPTION: RAD - Knee Right 3 View - 10/29/2021 9:16 am CLINICAL HISTORY: Pain COMPARISON: No comparisons FINDINGS/IMPRESSION: No acute fracture. No malalignment. No significant focal degenerative changes.
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
[2021-10-29 10:59] VITALS: TEMP 97.5; O2SAT 100
[2021-10-29 11:00] VITALS: BP 102/60
== END 2021-10-29 10:52 | disposition home or self-care (01) ==
LOC: ER 08:07
DX: S00.83XA Contusion of other part of head, initial encounter (principal); M25.511 Pain in right shoulder; M25.522 Pain in left elbow; M25.532 Pain in left wrist; M25.562 Pain in left knee; M25.561 Pain in right knee; R51.9 Headache, unspecified; V49.40XA Driver injured in collision with unspecified motor vehicles in traffic accident, initial encounter; Z88.0 Allergy status to penicillin; Z88.6 Allergy status to analgesic agent; Z91.040 Latex allergy status; Z91.048 Other nonmedicinal substance allergy status
CPT/HCPCS: 70450; 72125; 99284